=== PATIENT | male | born 1955 | race Caucasian/White ===

== ENCOUNTER 2018-02-09 13:20 | Observation (INO) | payer OTHER ==
[2018-02-09] MEDS ORDERED: SODIUM CHLORIDE 0.9% 1,000 ML IV STA (13:58)
[2018-02-09] MEDS ORDERED: HYDROmorphone 1 MG/ML 1 ML SYRINGE IVP STA (14:24)
[2018-02-09] MEDS ORDERED: ONDANSETRON 4 MG/2 ML VIAL IVP STA (14:24)
[2018-02-09] MEDS ORDERED: LORazepam 2 MG/ML INJ IV STA (14:24)
--- NOTE | 2018-02-09 14:24 | ED ---
Abdominal Pain HPI - General Chief Complaint: Abdominal Pain Stated Complaint: vomiting, fever Time Seen by Provider: 02/09/18 13:44 Source: patient, RN notes reviewed, old records reviewed Mode of arrival: ambulatory Limitations: no limitations - History of Present Illness Initial Comments: This is a 62-year-old male the ER for evaluation he presents today for evaluation regards to nausea vomiting diarrhea, patient has multiple complex medical issues, hepatitis C and cirrhosis, opiate addiction on methadone, patient has had a week a week to 2 weeks of persistent nausea vomiting and diarrhea abdominal pain weakness dehydration, and able to tolerate oral intake, patient was unable to take medications for the last 2 days. Denies fevers no travel history no sick contacts and no recent antibiotic use MD Complaint: abdominal pain -: week(s) (2) Location: diffuse Radiation: none Migration to: no migration Severity: moderate Severity scale (1-10): 4 Quality: cramping, stabbing, aching Consistency: constant Improves With: medication Worsens With: eating, vomiting, movement Associated Symptoms: nausea, vomiting, diarrhea Treatments Prior to Arrival: prescription analgesics - Related Data Home Medications Medication Instructions Recorded Confirmed Methadone [Dolophine] 1 dose PO DIRECTED 08/12/13 02/09/18 Atorvastatin [Lipitor] 40 mg PO HS 02/09/18 02/09/18 Benazepril [Lotensin] 10 mg PO BID 02/09/18 02/09/18 Carvedilol [Coreg] 25 mg PO BID 02/09/18 02/09/18 Furosemide [Lasix] 20 mg PO DAILY 02/09/18 02/09/18 Levothyroxine Sodium [Synthroid] 175 mcg PO DAILY 02/09/18 02/09/18 Lisinopril [Zestril] 10 mg PO DAILY 02/09/18 02/09/18 PARoxetine [Paxil] 20 mg PO DAILY 02/09/18 02/09/18 Spironolactone [Aldactone] 25 mg PO DAILY 02/09/18 02/09/18 clonazePAM [KlonoPIN] 0.5 mg PO BID PRN 02/09/18 02/09/18 traZODone HCL 100 mg PO HS 02/09/18 02/09/18 Previous Rx's Medication Instructions Recorded Ondansetron Odt [Zofran ODT] 4 mg PO Q8HR PRN #30 tab 02/09/18 Allergies Allergy/AdvReac Type Severity Reaction Status Date / Time codeine AdvReac Itching Verified 02/09/18 14:55 oxycodone [From OxyContin] AdvReac patient Verified 02/09/18 14:55 does not want Review of Systems ROS Statement: Those systems with pertinent positive or pertinent negative responses have been documented in the HPI. ROS Other: All systems not noted in ROS Statement are negative. Past Medical History Past Medical History: Hyperlipidemia, Hypertension, Thyroid Disorder Additional Past Medical History / Comment(s): chronic back pain, hypothyroid History of Any Multi-Drug Resistant Organisms: None Reported Past Surgical History: Back Surgery, Hernia Repair, Tonsillectomy Additional Past Surgical History / Comment(s): R/L elbow sx Past Anesthesia/Blood Transfusion Reactions: No Reported Reaction Past Psychological History: No Psychological Hx Reported Smoking Status: Current some day smoker Past Alcohol Use History: None Reported Past Drug Use History: Marijuana General Exam Limitations: no limitations General appearance: alert, in no apparent distress Head exam: Present: atraumatic, normocephalic, normal inspection Eye exam: Present: normal appearance, PERRL, EOMI. Absent: scleral icterus, conjunctival injection, periorbital swelling ENT exam: Present: normal exam, mucous membranes moist Neck exam: Present: normal inspection. Absent: tenderness, meningismus, lymphadenopathy Respiratory exam: Present: normal lung sounds bilaterally. Absent: respiratory distress, wheezes, rales, rhonchi, stridor Cardiovascular Exam: Present: regular rate, normal rhythm, normal heart sounds. Absent: systolic murmur, diastolic murmur, rubs, gallop, clicks GI/Abdominal exam: Present: soft, normal bowel sounds. Absent: distended, tenderness, guarding, rebound, rigid Extremities exam: Present: normal inspection, full ROM, normal capillary refill. Absent: tenderness, pedal edema, joint swelling, calf tenderness Back exam: Present: normal inspection Neurological exam: Present: alert, oriented X3, CN II-XII intact Psychiatric exam: Present: normal affect, normal mood Skin exam: Present: warm, dry, intact, normal color. Absent: rash Course Vital Signs 02/09/18 13:24 Temperature 97.9 F Pulse Rate 84 Respiratory 22 Rate Blood Pressure 164/101 O2 Sat by Pulse 84 L Oximetry - Reevaluation(s) Reevaluation #1: 02/09/18 16:38 Medical record is reviewed Reevaluation #2: 02/09/18 16:39 Patient has no improvement despite significant amount of medications here in the emergency room Medical Decision Making - Medical Decision Making 59 female the ER with intractable nausea vomiting, despite medication here in the ER patient is unable to tolerate oral diet, patient placed on pain control antibiotics and will be admitted for IV hydration and resuscitation - Lab Data Result diagrams: 02/09/18 13:52 02/09/18 13:52 Lab Results 02/09/18 02/09/18 02/09/18 Range/Units 13:52 13:52 13:52 WBC 13.0 H (3.8-10.6) k/uL RBC 4.55 (4.30-5.90) m/uL Hgb 13.3 (13.0-17.5) gm/dL Hct 40.9 (39.0-53.0) % MCV 90.0 (80.0-100.0) fL MCH 29.2 (25.0-35.0) pg MCHC 32.4 (31.0-37.0) g/dL RDW 15.0 (11.5-15.5) % Plt Count 319 (150-450) k/uL Neutrophils % 80 % Lymphocytes % 13 % Monocytes % 5 % Eosinophils % 1 % Basophils % 0 % Neutrophils # 10.4 H (1.3-7.7) k/uL Lymphocytes # 1.7 (1.0-4.8) k/uL Monocytes # 0.6 (0-1.0) k/uL Eosinophils # 0.1 (0-0.7) k/uL Basophils # 0.0 (0-0.2) k/uL PT (9.0-12.0) sec INR (<1.2) APTT (22.0-30.0) sec Sodium 141 (137-145) mmol/L Potassium 3.7 (3.5-5.1) mmol/L Chloride 108 H (98-107) mmol/L Carbon Dioxide 21 L (22-30) mmol/L Anion Gap 12 mmol/L BUN 18 (9-20) mg/dL Creatinine 0.89 (0.66-1.25) mg/dL Est GFR (CKD-EPI)AfAm >90 (>60 ml/min/1.73 sqM) Est GFR (CKD-EPI)NonAf >90 (>60 ml/min/1.73 sqM) Glucose 155 H (74-99) mg/dL Plasma Lactic Acid Jared (0.7-2.0) mmol/L Calcium 10.9 H (8.4-10.2) mg/dL Phosphorus 1.0 L* (2.5-4.5) mg/dL Magnesium 1.8 (1.6-2.3) mg/dL Total Bilirubin 0.6 (0.2-1.3) mg/dL AST 34 (17-59) U/L ALT 35 (21-72) U/L Alkaline Phosphatase 85 (38-126) U/L Total Creatine Kinase 36 L (55-170) U/L CK-MB (CK-2) 0.6 (0.0-2.4) ng/mL CK-MB (CK-2) Rel Index 1.7 Troponin I <0.012 (0.000-0.034) ng/mL Total Protein 7.7 (6.3-8.2) g/dL Albumin 4.1 (3.5-5.0) g/dL 02/09/18 02/09/18 Range/Units 13:52 15:07 WBC (3.8-10.6) k/uL RBC (4.30-5.90) m/uL Hgb (13.0-17.5) gm/dL Hct (39.0-53.0) % MCV (80.0-100.0) fL MCH (25.0-35.0) pg MCHC (31.0-37.0) g/dL RDW (11.5-15.5) % Plt Count (150-450) k/uL Neutrophils % % Lymphocytes % % Monocytes % % Eosinophils % % Basophils % % Neutrophils # (1.3-7.7) k/uL Lymphocytes # (1.0-4.8) k/uL Monocytes # (0-1.0) k/uL Eosinophils # (0-0.7) k/uL Basophils # (0-0.2) k/uL PT 10.2 (9.0-12.0) sec INR 1.0 (<1.2) APTT 22.5 (22.0-30.0) sec Sodium (137-145) mmol/L Potassium (3.5-5.1) mmol/L Chloride (98-107) mmol/L Carbon Dioxide (22-30) mmol/L Anion Gap mmol/L BUN (9-20) mg/dL Creatinine (0.66-1.25) mg/dL Est GFR (CKD-EPI)AfAm (>60 ml/min/1.73 sqM) Est GFR (CKD-EPI)NonAf (>60 ml/min/1.73 sqM) Glucose (74-99) mg/dL Plasma Lactic Acid Jared 2.5 H* (0.7-2.0) mmol/L Calcium (8.4-10.2) mg/dL Phosphorus (2.5-4.5) mg/dL Magnesium (1.6-2.3) mg/dL Total Bilirubin (0.2-1.3) mg/dL AST (17-59) U/L ALT (21-72) U/L Alkaline Phosphatase (38-126) U/L Total Creatine Kinase (55-170) U/L CK-MB (CK-2) (0.0-2.4) ng/mL CK-MB (CK-2) Rel Index Troponin I (0.000-0.034) ng/mL Total Protein (6.3-8.2) g/dL Albumin (3.5-5.0) g/dL Disposition Clinical Impression: Abdominal pain, Nausea & vomiting Disposition: ADMITTED IP TO THIS HOSP Condition: Good Instructions: Acute Nausea and Vomiting (ED), Abdominal Pain (ED) Prescriptions: Ondansetron Odt [Zofran ODT] 4 mg PO Q8HR PRN #30 tab PRN Reason: nausea/vomiting Is patient prescribed a controlled substance at d/c from ED?: No Referrals: Giuseppe Santiago DO [Primary Care Provider] - 1-2 days
[2018-02-09 14:42] LABS: Basophils % (A) 0 %; Eosinophils # (A) 0.1 k/uL (0-0.7); Eosinophils % (A) 1 %; HCT 40.9 % (39.0-53.0); HGB 13.3 gm/dL (13.0-17.5); Lymphocytes # (A) 1.7 k/uL (1.0-4.8); Lymphocytes % (A) 13 %; MCH 29.2 pg (25.0-35.0); MCHC 32.4 g/dL (31.0-37.0); Mean Platelet Volume 6.4; Monocytes # (A) 0.6 k/uL (0-1.0); Monocytes % (A) 5 %; Neutrophils # (A) 10.4 k/uL (1.3-7.7); Neutrophils % (A) 80 %; Platelet Count 319 k/uL (150-450); RBC 4.55 m/uL (4.30-5.90)
[2018-02-09 14:49] LABS: ALT 35 U/L (21-72); AST 34 U/L (17-59); Albumin 4.1 g/dL (3.5-5.0); Alkaline Phosphatase 85 U/L (38-126); Anion Gap 12 mmol/L; Blood Urea Nitrogen 18 mg/dL (9-20); Calcium 10.9 mg/dL (8.4-10.2); Carbon Dioxide 21 mmol/L (22-30); Chloride 108 mmol/L (98-107); Glucose 155 mg/dL (74-99); Magnesium 1.8 mg/dL (1.6-2.3); Potassium 3.7 mmol/L (3.5-5.1); Sodium 141 mmol/L (137-145); Total Bilirubin 0.6 mg/dL (0.2-1.3); Total Protein 7.7 g/dL (6.3-8.2)
[2018-02-09 14:53] LABS: Partial Thromboplastin Time 22.5 sec (22.0-30.0); Prothrombin Time 10.2 sec (9.0-12.0)
[2018-02-09 14:58] LABS: Creatine Kinase 36 U/L (55-170)
[2018-02-09 15:12] LABS: Creatine Kinase MB 0.6 ng/mL (0.0-2.4); Troponin I <0.012 ng/mL (0.000-0.034)
[2018-02-09] MEDS ORDERED: LORazepam 2 MG/ML INJ IV PRN (16:33)
[2018-02-09] MEDS ORDERED: SODIUM CHLORIDE 0.9% 1,000 ML IV ONE (16:33)
[2018-02-09] MEDS ORDERED: ONDANSETRON 4 MG/2 ML VIAL IVP PRN (16:33)
[2018-02-09] MEDS ORDERED: LABETALOL 5 MG/ML VIAL MDV IVP STA (17:19)
[2018-02-09] MEDS ORDERED: hydrALAZINE HCL 20 MG/ML 1 ML VIAL IVP PRN (17:19)
[2018-02-09] MEDS ORDERED: clonazePAM 0.5 MG TAB PO PRN (20:07)
[2018-02-09] MEDS ORDERED: ALPRAZolam 0.25 MG TAB PO PRN (20:13)
[2018-02-09] MEDS ORDERED: TEMAZEPAM 15 MG CAP PO PRN (20:13)
[2018-02-09] MEDS ORDERED: METHADONE 10 MG TAB PO SCH (20:15)
[2018-02-09] MEDS: HYDROmorphone 1 MG/ML 1 ML SYRINGE IVP PRN (20:15)
--- NOTE | 2018-02-09 20:54 | XR ---
EXAMINATION TYPE: XR chest 1V portable DATE OF EXAM: 02/09/2018 CLINICAL HISTORY: CHF and shortness of breath. TECHNIQUE: Single AP portable frontal upright view of the chest is obtained. COMPARISON: Chest x-ray August 21, 2012. FINDINGS: There is some chronic parenchymal change without suspicious focal air space opacity, pleur al effusion, or pneumothorax seen. The cardiac silhouette size is within normal limits with ectatic thoracic aorta. The osseous structures are demineralized. IMPRESSION: No suspicious acute cardiopulmonary process.
[2018-02-09] MEDS ORDERED: CARVEDILOL 12.5 MG TAB PO SCH (21:00)
[2018-02-09] MEDS ORDERED: NON-FORMULARY DRUG (Benazepril 10 MG) PO SCH (21:00)
--- NOTE | 2018-02-09 21:31 | HP ---
HISTORY AND PHYSICAL DATE OF SERVICE: 02/09/2018 CHIEF COMPLAINT: Abdominal pain and nausea and vomiting. HISTORY OF PRESENT ILLNESS: This 62-year-old gentleman with a past medical history of multiple medical problems including hypertension, hyperlipidemia, hypothyroidism, history of chronic back pain, hypothyroidism, being followed by Dr. Tammy Santiago in the outpatient setting , was complaining of abdominal pain. The patient also had nausea, vomiting, diarrhea going on for the last 15 days. Patient unable to keep anything down. Patient got better the last couple days apparently but now the symptoms are recurring and the patient came to [facility] and admitted for further evaluation and treatment. There is no history of fever, rigors. No history of headache, loss of consciousness, seizures. PAST MEDICAL HISTORY: History of hypertension, hyperlipidemia, hypothyroidism, history of chronic back pain and back surgery. MEDICATIONS: Prior to admission include home medications are: 1. Trazodone 100 mg p.o. q.h.s. 2. Klonopin 0.5 mg b.i.d. p.r.n. 3. Aldactone 25 mg p.o. daily. 4. Paxil 20 mg p.o. daily. 6. Zestril 10 mg p.o. daily. 7. Synthroid 175 mcg. 8. Lasix 20 mg. 9. Coreg b.i.d. p.r.n. 10.Lotensin 10 mg p.o. b.i.d. 11.Lipitor 40 mg q.h.s. 12.Zofran 4 mg q.8h p.r.n. ALLERGIES: CODEINE, OXYCODONE. FAMILY HISTORY: No history of heart disease or strokes in the family. SOCIAL HISTORY: History of smoking and history of THC. No history of alcohol intake. REVIEW OF SYSTEMS: ENT: Diminished hearing and diminished vision. CARDIOVASCULAR: No angina or palpitations. RESPIRATORY: As mentioned earlier. GI: No nausea or vomiting. no dysuria. Central nervous system: No numbness or weakness. ALLERGY/IMMUNOLOGY: No asthma or hayfever. Musculoskeletal: As mentioned earlier. Hematology/Oncology: No history of anemia. ENDOCRINE: No history of diabetes or hypothyroidism. Constitutional: As mentioned earlier. Dermatology: Negative. Rheumatology: Negative. Psychiatry: As mentioned earlier. PHYSICAL EXAMINATION: GENERAL: The patient is alert and oriented times three. VITAL SIGNS: Pulse 71, blood pressure 150/100, respiration 18, temperature 97.8 , pulse ox 97% on room air. HEENT conjunctivae normal. Oral mucosa moist. Neck is no jugular venous distention. No carotid bruit. No lymph node enlargement. Cardiovascular systems: S1, S2 muffled. Respirations: Breath sounds diminished in the bases. A few scattered rhonchi and crackles. ABDOMEN: Soft, mild diffuse discomfort in the epigastrium. LEGS: No edema. No swelling. NERVOUS SYSTEM: Higher functions as mentioned earlier. Moves all 4 limbs. No focal motor or sensory deficits. Lymphatics: No lymph nodes palpable in the neck, axillae or groin. Skin: No ulcer, rash or bleeding. Joints: No active deforming arthropathy. LABS: WBC 13 and sodium 141, potassium 3.7, lactic acid 2.4, phosphorus is 1, calcium is 10.9. ASSESSMENT: 1. Nausea, vomiting, diarrhea, possible acute gastritis. 2. Dehydration. 3. Increased lactic acid, possibly secondary to dehydration. 4. Increased WBC. 5. Hypertension. 6. Hyperlipidemia. 7. Hypothyroidism. 8. Chronic low back pain. 9. History of degenerative joint disease. 10.History of nicotine dependence. 11.History of THC. RECOMMENDATIONS AND DISCUSSION: In this 62-year-old gentleman who presented with multiple complex medical issues. We will monitor the patient closely, continue the current medications, management and symptomatic treatment. Otherwise, at this time, we will monitor the patient closely. Resume the current medications. Otherwise, p.r.n. Ativan. I would recommend n.p.o. except medications, if the patient is able to tolerate, start clear liquids and advance to bland diet. Otherwise the prognosis guarded because of multiple complex medical issues. Further recommendations to follow. Discussed with the patient. A copy of dictation is being forwarded to Dr. Tammy Santiago, who is the primary physician. MMODL / IJN: [id number] / [facility]OSPITALMonae
[2018-02-09] MEDS: SODIUM CHLORIDE 0.9% 1,000 ML with POTASSIUM CHLORIDE 20 MEQ, MVI, ADULT NO.4 WITH VIT ... IV SCH ×5 (23:06)
[2018-02-09] MEDS: PANTOPRAZOLE 40 MG/10 ML VIAL IVP SCH (23:07)
[2018-02-09] MEDS: ATORVASTATIN 40 MG TAB PO SCH (23:07)
[2018-02-09] MEDS: traZODone HCL 100 MG TAB PO SCH (23:07)
[2018-02-09] MEDS: PARoxetine 20 MG TAB PO SCH (23:12)
[2018-02-10 05:41] LABS: Anion Gap 4 mmol/L; Blood Urea Nitrogen 14 mg/dL (9-20); Calcium 9.6 mg/dL (8.4-10.2); Carbon Dioxide 25 mmol/L (22-30); Chloride 111 mmol/L (98-107); Glucose 95 mg/dL (74-99); Potassium 4.1 mmol/L (3.5-5.1); Sodium 140 mmol/L (137-145)
[2018-02-10 05:42] LABS: Basophils % (A) 0 %; Eosinophils # (A) 0.1 k/uL (0-0.7); Eosinophils % (A) 2 %; HCT 35.1 % (39.0-53.0); HGB 11.3 gm/dL (13.0-17.5); Lymphocytes # (A) 2.4 k/uL (1.0-4.8); Lymphocytes % (A) 25 %; MCH 29.1 pg (25.0-35.0); MCHC 32.2 g/dL (31.0-37.0); MCV 90.4 fL (80.0-100.0); Mean Platelet Volume 6.1; Monocytes # (A) 0.5 k/uL (0-1.0); Monocytes % (A) 5 %; Neutrophils # (A) 6.4 k/uL (1.3-7.7); Neutrophils % (A) 67 %; Platelet Count 237 k/uL (150-450); RBC 3.88 m/uL (4.30-5.90); RDW 15.3 % (11.5-15.5); WBC 9.5 k/uL (3.8-10.6)
[2018-02-10] MEDS: LEVOTHYROXINE 75 MCG TAB PO SCH (06:05)
[2018-02-10] MEDS: LEVOTHYROXINE 100 MCG TAB PO SCH (06:05)
[2018-02-10] MEDS: METHADONE 5 MG TAB PO SCH ×4 (06:06→17:57)
[2018-02-10] MEDS: HYDROmorphone 1 MG/ML 1 ML SYRINGE IVP PRN (07:52)
[2018-02-10] MEDS ORDERED: SPIRONOLACTONE 25 MG TAB PO SCH (09:00)
[2018-02-10] MEDS ORDERED: PARoxetine 20 MG TAB PO SCH (09:00)
[2018-02-10] MEDS ORDERED: PANTOPRAZOLE 40 MG/10 ML VIAL IVP SCH (09:00)
[2018-02-10] MEDS: PANTOPRAZOLE 40 MG/10 ML VIAL IVP SCH ×2 (09:08→21:31)
[2018-02-10] MEDS: ENOXAPARIN 40 MG/0.4 ML SYRINGE SQ SCH (09:09)
[2018-02-10] MEDS: LISINOPRIL 10 MG TAB PO SCH (09:09)
[2018-02-10] MEDS ORDERED: BUTALB/APAP/CAFF 50-325-40MG TAB PO STA (09:38)
--- NOTE | 2018-02-10 17:02 | PN ---
PROGRESS NOTE DATE OF SERVICE: 02/10/2018 This 62-year-old gentleman who was admitted with nausea, vomiting, diarrhea with possible acute gastritis is being closely monitored. The patient is n.p.o. currently. No chest pain or palpitations. No fever. A chest x-ray done yesterday showed no suspicious lesions. PHYSICAL EXAMINATION: On exam, alert and oriented x3. Pulse is 69, blood pressure 130/69, respirations 16, temperature 97.9, pulse ox 97% on room air. HEENT: Conjunctivae normal. Oral mucosa moist. Neck is no jugular venous distention. No carotid bruit. No lymph node enlargement. CARDIOVASCULAR: S1, S2 muffled. RESPIRATORY: Breath sounds diminished at the bases. No rhonchi, no crackles. Abdomen is soft, nontender. No mass palpable. LEGS: No edema, no swelling. NERVOUS SYSTEM: No focal deficits. LABS: WBC 9.5, hemoglobin 11.3. Sodium 140, potassium 4.1. ASSESSMENT: 1. Nausea, vomiting, diarrhea, possible acute gastritis. 2. Dehydration. 3. Increased lactic acidosis, possibly secondary to dehydration. 4. Increased WBC. 5. Hypertension. 6. Hyperlipidemia. 7. Hypothyroidism. 8. Chronic low back pain. 9. History of degenerative joint disease. 10.History of nicotine dependence. 11.History of THC. RECOMMENDATIONS AND DISCUSSION: Recommend to continue current medications. Continue with monitoring and symptomatic treatment. Otherwise at this time I would recommend to continue with IV fluids. Advance diet. The prognosis is guarded. Further recommendations to follow. Please note patient is unable to keep anything down for 15 days and continue to monitor. Further recommendations to follow. MMODL / IJN: [id number] /
[2018-02-10 17:43] LABS: Appearance,Urine Clear (Clear); Bilirubin,Urine Negative (Negative); Blood,Urine Negative (Negative); Color,Urine Light Yellow; Glucose,Urine (UA) Negative (Negative); Ketones,Urine Negative (Negative); Leukocyte Esterase,Urine Negative (Negative); Nitrite,Urine Negative (Negative); PH, Urine 5.5 (5.0-8.0); Protein,Urine Negative (Negative); Specific Gravity,Urine 1.008 (1.001-1.035); Urobilinogen,Urine <2.0 mg/dL (<2.0)
[2018-02-10] MEDS: SODIUM CHLORIDE 0.9% 1,000 ML with POTASSIUM CHLORIDE 20 MEQ, MVI, ADULT NO.4 WITH VIT ... IV SCH ×5 (17:57)
[2018-02-10 17:59] LABS: Amphetamine Screen,Urine Not Detected (NotDetected); Barbiturate Screen,Urine Detected (NotDetected); Benzodiazepines Screen,Urine Detected (NotDetected); Cocaine Screen,Urine Not Detected (NotDetected); Methadone Screen, Urine Detected (NotDetected); Opiate Screen,Urine Detected (NotDetected); Oxycodone Screen, Urine Not Detected (NotDetected); Phencyclidine Screen,Urine Not Detected (NotDetected); Tricyclic Antidepressant,Urine Not Detected (NotDetected); Urn Cannabinoid Scrn Detected (NotDetected)
[2018-02-10] MEDS: BUTALB/APAP/CAFF 50-325-40MG TAB PO PRN (18:01)
[2018-02-10] MEDS: ATORVASTATIN 40 MG TAB PO SCH (21:31)
[2018-02-10] MEDS: traZODone HCL 100 MG TAB PO SCH (21:32)
[2018-02-10] MEDS: PARoxetine 20 MG TAB PO SCH (21:32)
[2018-02-11] MEDS: METHADONE 5 MG TAB PO SCH ×3 (00:06→12:32)
[2018-02-11] MEDS: BUTALB/APAP/CAFF 50-325-40MG TAB PO PRN ×2 (00:07→08:33)
[2018-02-11] MEDS: LEVOTHYROXINE 75 MCG TAB PO SCH (06:06)
[2018-02-11] MEDS: LEVOTHYROXINE 100 MCG TAB PO SCH (06:06)
[2018-02-11] MEDS: SODIUM CHLORIDE 0.9% 1,000 ML with POTASSIUM CHLORIDE 20 MEQ, MVI, ADULT NO.4 WITH VIT ... IV SCH ×5 (06:08)
[2018-02-11 07:11] VITALS: BP 143/81; PULSE 76; RESP 18; TEMP 98.2
[2018-02-11] MEDS: ENOXAPARIN 40 MG/0.4 ML SYRINGE SQ SCH (08:30)
[2018-02-11] MEDS: LISINOPRIL 10 MG TAB PO SCH (08:30)
[2018-02-11] MEDS: PANTOPRAZOLE 40 MG/10 ML VIAL IVP SCH (08:30)
--- NOTE | 2018-02-11 10:35 | P.GSCN ---
History of Present Illness Consult date: 02/11/18 Reason for Consult: Chronic nausea abdominal pain History of present illness: This is a 62-year-old male with multiple medical problems. Patient was admitted through the emergency room with complaints of some abdominal pain nausea and some intermittent diarrhea. Patient states he feels better today. He is requesting be discharged because he has a appointment with his pain clinic doctor and he is afraid of having his narcotics reduced. Patient is requesting more to eat. Apparently has had some clear liquids. Past Medical History Past Medical History: Hyperlipidemia, Hypertension, Thyroid Disorder Additional Past Medical History / Comment(s): chronic back pain, hypothyroid History of Any Multi-Drug Resistant Organisms: None Reported Past Surgical History: Back Surgery, Hernia Repair, Tonsillectomy Additional Past Surgical History / Comment(s): R/L elbow sx Past Anesthesia/Blood Transfusion Reactions: No Reported Reaction Past Psychological History: No Psychological Hx Reported Smoking Status: Current some day smoker Past Alcohol Use History: None Reported Past Drug Use History: Marijuana - Past Family History Mother History Unknown: Yes Medications and Allergies Home Medications Medication Instructions Recorded Confirmed Type Methadone [Dolophine] 1 dose PO DIRECTED 08/12/13 02/09/18 History Atorvastatin [Lipitor] 40 mg PO HS 02/09/18 02/09/18 History Levothyroxine Sodium [Synthroid] 175 mcg PO DAILY 02/09/18 02/09/18 History Lisinopril [Zestril] 10 mg PO DAILY 02/09/18 02/09/18 History PARoxetine [Paxil] 20 mg PO HS 02/09/18 02/09/18 History clonazePAM [KlonoPIN] 0.5 mg PO BID PRN 02/09/18 02/09/18 History traZODone HCL 100 mg PO HS 02/09/18 02/09/18 History Allergies Allergy/AdvReac Type Severity Reaction Status Date / Time codeine AdvReac Itching Verified 02/09/18 14:55 oxycodone [From OxyContin] AdvReac patient Verified 02/09/18 14:55 does not want Surgical - Exam Vital Signs Temp Pulse Resp BP Pulse Ox 97.9 F 84 22 164/101 84 L 02/09/18 13:24 02/09/18 13:24 02/09/18 13:24 02/09/18 13:24 02/09/18 13:24 - General well developed, no distress - Eyes PERRL - ENT normal pinna - Neck no masses - Respiratory normal expansion - Cardiovascular Rhythm: regular - Abdomen Abdomen: soft Hernia: none Results - Labs 02/10/18 05:20 02/10/18 05:20 Abnormal Lab Results - Last 24 Hours (Table) 02/09/18 Range/Units 17:00 Urine Opiates Screen Detected H (NotDetected) Urine Methadone Screen Detected H (NotDetected) Ur Barbiturates Screen Detected H (NotDetected) U Benzodiazepines Scrn Detected H (NotDetected) U Marijuana (THC) Screen Detected H (NotDetected) Microbiology - Last 24 Hours (Table) 02/09/18 17:00 Urine Culture - Preliminary Urine,Voided Assessment and Plan Assessment: Chronic nausea and diarrhea. Patient's multiple medical problems limb unsure of the etiology of his nausea. He seems to be doing better today. I would recommend increasing his diet.
--- NOTE | 2018-02-11 14:21 | DS ---
DISCHARGE SUMMARY DATE OF SERVICE: 02/11/2018 FINAL DIAGNOSES: 1. Nausea, vomiting, diarrhea, possible acute gastritis. 2. Dehydration. 3. History of increased lactic acidosis possibly secondary to dehydration. 4. Increased WBC. 5. Hypertension. 6. Hyperlipidemia. 7. Hypothyroidism. 8. Chronic back pain syndrome and low back pain. 9. History of degenerative joint disease. 10.History of nicotine dependence. 11.History of THC. DISCHARGE DISPOSITION: The patient is being discharged in stable condition with guarded prognosis. HISTORY OF PRESENT ILLNESS: This 62-year-old gentleman with a past medical history of multiple medical problems having nausea, vomiting, diarrhea. The patient was treated symptomatically, improved significantly. Patient was given IV fluids. The patient is keen on going home at this time. The patient had the Pain Clinic appointment tomorrow. On exam vitals stable. Cardiovascular: S1, S2. Abdomen soft. Nervous system: No focal deficits. The patient is not symptomatically better. The patient might any need outpatient EGD later to be evaluated by Dr. Santiago for that decision. Discussed with the patient. DISCHARGE ADVICE AND MEDICATION: 1. Diet is soft bland as tolerated. 2. Follow up with Dr. Tammy Santiago in 1-2 days. 3. Lipitor 40 mg q.h.s. 4. Klonopin 0.5 mg b.i.d. p.r.n. 5. Synthroid 175 mcg p.o. daily. 6. Zestril 10 mg p.o. daily. 7. Methadone 10 mg as before. 8. Paxil 20 mg q.h.s. 9. Trazodone 100 mg q.h.s. 10.Protonix 40 mg p.o. daily. Once again, the patient is being discharged in stable condition with guarded prognosis. MMODL / IJN: [id number] /
== END 2018-02-11 13:41 | disposition home or self-care (01) ==
LOC: EC 13:20 → 4MS4W 18:00
PROVIDERS: ADMIT Hospitalist; ATTEND Hospitalist
DX: R11.2 Nausea with vomiting, unspecified (principal); R19.7 Diarrhea, unspecified; R10.9 Unspecified abdominal pain; E86.0 Dehydration; G89.4 Chronic pain syndrome; E03.9 Hypothyroidism, unspecified; E78.5 Hyperlipidemia, unspecified; I10 Essential (primary) hypertension; B19.20 Unspecified viral hepatitis C without hepatic coma; M54.5 Low back pain; E87.2 Acidosis; K74.60 Unspecified cirrhosis of liver; F17.200 Nicotine dependence, unspecified, uncomplicated; F11.20 Opioid dependence, uncomplicated; Z79.890 Hormone replacement therapy; Z79.899 Other long term (current) drug therapy; Z88.5 Allergy status to narcotic agent
CPT/HCPCS: 96376 ×3; 96361 ×3; 96375 ×2; 96374; 99285; 36415; 94760; 93005; 80053; 80048; 82550; 82553; 83605 ×2; 83735; 84100; 84484; 85025 ×2; 85610; 85730; 81003; 80306; 87086; 71045; G0378 ×3; J2060; J3411 ×3; J2405; J3480 ×3; J1170 ×2; S0109 ×2; C9113 ×3

== ENCOUNTER → 2018-06-30 | Outpatient (CLI) | payer OTHER ==
--- NOTE | 2018-06-30 12:50 | MR ---
EXAMINATION TYPE: MR knee LT wo con DATE OF EXAM: 06/30/2018 COMPARISON: Outside x-ray 06/18/2018 HISTORY: Lt knee pain TECHNIQUE: Multiplanar, multisequence imaging of the left knee is performed without IV contrast. FINDINGS: Exam limited by motion artifact. MEDIAL MENISCUS: Grade 3 abnormal signal involving the posterior horn and body of the medial meniscus compatible with tear LATERAL MENISCUS: There is signal seen in the medial margin of the posterior horn of the lateral meni scus suggestive of a lateral meniscal tear. CRUCIATE LIGAMENTS: The anterior and posterior cruciate ligaments are intact and unremarkable. COLLATERAL LIGAMENTS: The medial collateral ligament and lateral collateral ligament complex are inta ct and unremarkable. EXTENSOR MECHANISM: Visualized quadriceps and patellar tendons are intact. EFFUSION: No significant suprapatellar joint effusion. POPLITEAL CYST: No popliteal/brady cyst. TRICOMPARTMENT SPACES: There is deformity of the medial tibial tubercle which could be congenital but there is loss of joint space and articular cartilage compatible osteoarthritis. Grade III chondromal acia patellar cartilage also noted. BONE MARROW SIGNAL: There is a well-circumscribed 15 mm lesion within the distal metadiaphysis of the femur. No corresponding x-ray abnormality. Recommend bone scan. Localized area of reduced signal along the articular surface of the lateral femoral condyle likely re active. Small area of osteochondritis not excluded. IMPRESSION: 1. Chronic appearing deformity of the medial tibial plateau can occasionally be seen in congenital ab normality such as [place]'s disease correlate clinically. Findings result in severe arthritic changes. There also is a tear involving the posterior horn and body of the medial meniscus. 2. There is an intraosseous lesion of the distal femur with no corresponding x-ray abnormality. Recom mend bone scan. 3. Posterior horn lateral meniscal tear.
== END | disposition home or self-care (01) ==
LOC: RADMRIMAIN 12:00
PROVIDERS: ATTEND Orthopaedic Surgery
DX: S83.282A Other tear of lateral meniscus, current injury, left knee, initial encounter (principal); M89.9 Disorder of bone, unspecified

== ENCOUNTER → 2018-08-21 | Outpatient (CLI) | payer OTHER ==
--- NOTE | 2018-08-21 13:17 | MR ---
EXAMINATION TYPE: MR lumbar spine wo con DATE OF EXAM: 08/21/2018 COMPARISON: CT lumbar spine 05/17/2011 HISTORY: Low back pain TECHNIQUE: Multiplanar, multisequence images of the lumbar spine were acquired. L1-L2: Posterior broad-based disc bulge causes mild anterior mass effect on the thecal sac. No signif icant central stenosis or foraminal encroachment. L2-L3: Posterior extension of endplate disc complex causes mild anterior mass effect on the thecal sa c. There is facet arthropathy causing some posterior lateral mass effect on the thecal sac. Circumfer ential extension endplate disc complex encroaches somewhat on the foramina greater on the right. No s ignificant central stenosis. L3-L4: Posterior broad-based disc bulge, posterior extension endplate disc complex causes anterior ma ss effect on the thecal sac. Facet arthropathy with vertically ligamentum flavum contributes to cause a trefoil appearance of the thecal sac. Circumferential extension endplate disc complex encroaches o n the neural foramina. L4-L5: Posterior broad-based disc bulge causes anterior mass effect on the thecal sac but no signific ant spinal stenosis. Listhesis contributes to cause bilateral foraminal encroachment, there is some f acet arthropathy change L5-S1: Listhesis contributes to cause bilateral foraminal encroachment. Laminectomies are present. No spinal stenosis. No disc herniation. The patient is status post posterior lumbosacral fusion at L5-S1, susceptibility artifact is present from the hardware No paraspinal masses are identified. Conus medullaris has a normal appearance. [place] s of disc height and signal is present at intervertebral levels, there is multilevel spondylosis with endplate discogenic marrow signal change, multilevel vacuum phenomenon at the intervertebral disc sp aces consistent with disc desiccation, degenerative disc disease. Anterolisthesis grade 1 at L5-S1 is again seen. Minimal anterolisthesis grade 1 at L4-5 is an interval finding. Abdominal aorta measures approximately 3 cm in the super renal location. Cortical cyst associated with the right kidney measu res approximately 14 mm in size. Multilevel Schmorl's node formation the lower thoracic spine. Conus terminates at L2. IMPRESSION: Postop changes, degenerative disc disease, multilevel foraminal encroachment. Spinal listhesis L4-5 a nd L5-S1. Aortic aneurysm, follow-up recommended. Facet arthropathy.
== END | disposition home or self-care (01) ==
LOC: RADMRIMAIN 11:59
PROVIDERS: ATTEND Orthopaedic Surgery Orthopaedic Surgery of the Spine
DX: M48.061 Spinal stenosis, lumbar region without neurogenic claudication (principal); M48.07 Spinal stenosis, lumbosacral region; M43.16 Spondylolisthesis, lumbar region; M43.17 Spondylolisthesis, lumbosacral region; M51.36 Other intervertebral disc degeneration, lumbar region; M46.96 Unspecified inflammatory spondylopathy, lumbar region; Z98.1 Arthrodesis status
CPT/HCPCS: 72148

== ENCOUNTER 2019-01-20 21:47 | Emergency (ER) | payer OTHER ==
[2019-01-20] MEDS ORDERED: SODIUM CHLORIDE 0.9% 1,000 ML IV STA (22:09)
[2019-01-20] MEDS ORDERED: HYDROmorphone 1 MG/ML 1 ML SYRINGE IVP STA (22:09)
--- NOTE | 2019-01-20 22:13 | ED ---
Back Pain HPI - General Chief Complaint: Back Pain/Injury Stated Complaint: Post op back surgery complications Time Seen by Provider: 01/20/19 21:57 Source: patient, RN notes reviewed, old records reviewed Limitations: no limitations - History of Present Illness Initial Comments: This is a 63-year-old male the ER for evaluation presented for postop pain postop pain and swelling. He is admitted to increasing pain at base of popped up about an hour ago he also swelling at the top of his incision site. Patient had surgery at [facility]. Surgery was for lumbar fusion secondary to disc disease. He has no neurological deficits no loss of bowel or bladder and currently denying fevers chills or sweating. MD Complaint: back pain, other (Postoperative pain) -: hour(s) Similar Symptoms Previously: No Place: home Radiation: none Severity: moderate Severity scale (1-10): 7 Consistency: constant Improves With: none Worsens With: none Context: other (No injury but does have history of surgery) Associated Symptoms: denies other symptoms - Related Data Home Medications Medication Instructions Recorded Confirmed Methadone [Dolophine] 40 mg PO DAILY 08/12/13 01/20/19 Atorvastatin [Lipitor] 40 mg PO HS 02/09/18 01/20/19 Levothyroxine Sodium [Synthroid] 175 mcg PO DAILY 02/09/18 01/20/19 Aspirin EC [Ecotrin Low Dose] 81 mg PO DAILY 01/20/19 01/20/19 Lisinopril [Zestril] 20 mg PO DAILY 01/20/19 01/20/19 Methocarbamol [Robaxin-750] 750 mg PO TID 01/20/19 01/20/19 PARoxetine HCL [Paxil] 30 mg PO HS 01/20/19 01/20/19 Potassium 99 mg PO DAILY 01/20/19 01/20/19 oxyCODONE-APAP 10-325MG [Percocet 1 tab PO TID PRN 01/20/19 01/20/19 10-325 mg] Allergies Allergy/AdvReac Type Severity Reaction Status Date / Time codeine AdvReac Itching Verified 01/20/19 22:35 oxycodone [From OxyContin] AdvReac patient Verified 01/20/19 22:35 does not want Review of Systems ROS Statement: Those systems with pertinent positive or pertinent negative responses have been documented in the HPI. ROS Other: All systems not noted in ROS Statement are negative. Past Medical History Past Medical History: Hyperlipidemia, Hypertension, Thyroid Disorder Additional Past Medical History / Comment(s): chronic back pain, hypothyroid History of Any Multi-Drug Resistant Organisms: None Reported Past Surgical History: Back Surgery, Hernia Repair, Tonsillectomy Additional Past Surgical History / Comment(s): R/L elbow sx Past Anesthesia/Blood Transfusion Reactions: No Reported Reaction Past Psychological History: No Psychological Hx Reported Smoking Status: Current some day smoker Past Alcohol Use History: None Reported Past Drug Use History: Marijuana - Past Family History Mother History Unknown: Yes General Exam Limitations: no limitations General appearance: alert, in no apparent distress Head exam: Present: atraumatic, normocephalic, normal inspection Eye exam: Present: normal appearance, PERRL, EOMI. Absent: scleral icterus, conjunctival injection, periorbital swelling ENT exam: Present: normal exam, mucous membranes moist Neck exam: Present: normal inspection. Absent: tenderness, meningismus, lymphadenopathy Respiratory exam: Present: normal lung sounds bilaterally. Absent: respiratory distress, wheezes, rales, rhonchi, stridor Cardiovascular Exam: Present: normal rhythm, tachycardia, normal heart sounds. Absent: systolic murmur, diastolic murmur, rubs, gallop, clicks GI/Abdominal exam: Present: soft, normal bowel sounds. Absent: distended, tenderness, guarding, rebound, rigid Extremities exam: Present: normal inspection, full ROM, normal capillary refill. Absent: tenderness, pedal edema, joint swelling, calf tenderness Back exam: Present: full ROM, other (Patient has clean dry and intact incision site no dehiscence cephalad to the incision site is an area of tenderness and edema) Neurological exam: Present: alert, oriented X3, CN II-XII intact Psychiatric exam: Present: normal affect, normal mood Skin exam: Present: warm, dry, intact, normal color. Absent: rash Course Vital Signs 01/20/19 21:48 Temperature 99.2 F Pulse Rate 101 H Respiratory 18 Rate Blood Pressure 137/90 O2 Sat by Pulse 98 Oximetry - Reevaluation(s) Reevaluation #1: 01/21/19 00:00 Medical records reviewed Reevaluation #2: 01/21/19 00:00 She'll return to ER symptoms of fever worsen or back pain significantly becomes worse or any neurologcal changes Medical Decision Making - Medical Decision Making 53 male the ER for evaluation of postop swelling. Incisions clean dry and intact no erythema warmth to the area no fever patient's CT of his lumbar spine is without spinal abscess he does have some postsurgical changes and healing no hortencia. No discrete abscess no erythema on exam no warmth. No signs of infection patient can be discharged home to continue to monitor for signs of fever or swelling increasing or redness - Lab Data Result diagrams: 01/20/19 22:27 01/20/19 22:27 Lab Results 01/20/19 01/20/19 01/20/19 Range/Units 22:27 22:27 22:27 WBC 13.9 H (3.8-10.6) k/uL RBC 4.49 (4.30-5.90) m/uL Hgb 12.4 L (13.0-17.5) gm/dL Hct 39.3 (39.0-53.0) % MCV 87.5 (80.0-100.0) fL MCH 27.6 (25.0-35.0) pg MCHC 31.5 (31.0-37.0) g/dL RDW 15.9 H (11.5-15.5) % Plt Count 546 H (150-450) k/uL Neutrophils % 72 % Lymphocytes % 18 % Monocytes % 6 % Eosinophils % 2 % Basophils % 1 % Neutrophils # 10.0 H (1.3-7.7) k/uL Lymphocytes # 2.5 (1.0-4.8) k/uL Monocytes # 0.8 (0-1.0) k/uL Eosinophils # 0.3 (0-0.7) k/uL Basophils # 0.1 (0-0.2) k/uL Hypochromasia Slight PT (9.0-12.0) sec INR (<1.2) APTT (22.0-30.0) sec Sodium 139 (137-145) mmol/L Potassium 4.6 (3.5-5.1) mmol/L Chloride 108 H (98-107) mmol/L Carbon Dioxide 24 (22-30) mmol/L Anion Gap 7 mmol/L BUN 27 H (9-20) mg/dL Creatinine 0.90 (0.66-1.25) mg/dL Est GFR (CKD-EPI)AfAm >90 (>60 ml/min/1.73 sqM) Est GFR (CKD-EPI)NonAf 90 (>60 ml/min/1.73 sqM) Glucose 109 H (74-99) mg/dL Plasma Lactic Acid Jared 1.4 (0.7-2.0) mmol/L Calcium 10.4 H (8.4-10.2) mg/dL Phosphorus 3.5 (2.5-4.5) mg/dL Magnesium 1.7 (1.6-2.3) mg/dL Total Bilirubin 0.2 (0.2-1.3) mg/dL AST 19 (17-59) U/L ALT 15 L (21-72) U/L Alkaline Phosphatase 171 H (38-126) U/L Creatine Kinase <20 L (55-170) U/L Troponin I (0.000-0.034) ng/mL Total Protein 7.5 (6.3-8.2) g/dL Albumin 3.8 (3.5-5.0) g/dL 01/20/19 01/20/19 Range/Units 22:27 22:27 WBC (3.8-10.6) k/uL RBC (4.30-5.90) m/uL Hgb (13.0-17.5) gm/dL Hct (39.0-53.0) % MCV (80.0-100.0) fL MCH (25.0-35.0) pg MCHC (31.0-37.0) g/dL RDW (11.5-15.5) % Plt Count (150-450) k/uL Neutrophils % % Lymphocytes % % Monocytes % % Eosinophils % % Basophils % % Neutrophils # (1.3-7.7) k/uL Lymphocytes # (1.0-4.8) k/uL Monocytes # (0-1.0) k/uL Eosinophils # (0-0.7) k/uL Basophils # (0-0.2) k/uL Hypochromasia PT 9.6 (9.0-12.0) sec INR 0.9 (<1.2) APTT 24.0 (22.0-30.0) sec Sodium (137-145) mmol/L Potassium (3.5-5.1) mmol/L Chloride (98-107) mmol/L Carbon Dioxide (22-30) mmol/L Anion Gap mmol/L BUN (9-20) mg/dL Creatinine (0.66-1.25) mg/dL Est GFR (CKD-EPI)AfAm (>60 ml/min/1.73 sqM) Est GFR (CKD-EPI)NonAf (>60 ml/min/1.73 sqM) Glucose (74-99) mg/dL Plasma Lactic Acid Jared (0.7-2.0) mmol/L Calcium (8.4-10.2) mg/dL Phosphorus (2.5-4.5) mg/dL Magnesium (1.6-2.3) mg/dL Total Bilirubin (0.2-1.3) mg/dL AST (17-59) U/L ALT (21-72) U/L Alkaline Phosphatase (38-126) U/L Creatine Kinase (55-170) U/L Troponin I <0.012 (0.000-0.034) ng/mL Total Protein (6.3-8.2) g/dL Albumin (3.5-5.0) g/dL - EKG Data -: EKG Interpreted by Me (EKG shows sinus rhythm rate of 90, VT 150, QRS 70, QTc 467) - Radiology Data Radiology results: report reviewed (T lumbosacral spine does show no evidence of discrete abscess, postsurgical changes), image reviewed Disposition Clinical Impression: Postoperative pain Disposition: HOME SELF-CARE Condition: Good Instructions (If sedation given, give patient instructions): Acute Low Back Pain (ED) Is patient prescribed a controlled substance at d/c from ED?: No Referrals: Mario Carrion Jr, DO [Primary Care Provider] - 1-2 days
[2019-01-20 22:46] LABS: Basophils # (A) 0.1 k/uL (0-0.2); Basophils % (A) 1 %; Eosinophils # (A) 0.3 k/uL (0-0.7); Eosinophils % (A) 2 %; HCT 39.3 % (39.0-53.0); HGB 12.4 gm/dL (13.0-17.5); Hypochromasia Slight; Lymphocytes # (A) 2.5 k/uL (1.0-4.8); Lymphocytes % (A) 18 %; MCH 27.6 pg (25.0-35.0); MCHC 31.5 g/dL (31.0-37.0); MCV 87.5 fL (80.0-100.0); Mean Platelet Volume 5.2; Monocytes # (A) 0.8 k/uL (0-1.0); Monocytes % (A) 6 %; Neutrophils % (A) 72 %; Platelet Count 546 k/uL (150-450); RBC 4.49 m/uL (4.30-5.90); RDW 15.9 % (11.5-15.5); WBC 13.9 k/uL (3.8-10.6)
[2019-01-20 22:54] LABS: INR 0.9 (<1.2); Prothrombin Time 9.6 sec (9.0-12.0)
[2019-01-20 23:06] LABS: ALT 15 U/L (21-72); AST 19 U/L (17-59); African American GFR (CKD) >90 (>60 ml/min/1.73 sqM); Albumin 3.8 g/dL (3.5-5.0); Alkaline Phosphatase 171 U/L (38-126); Anion Gap 7 mmol/L; Blood Urea Nitrogen 27 mg/dL (9-20); Calcium 10.4 mg/dL (8.4-10.2); Carbon Dioxide 24 mmol/L (22-30); Chloride 108 mmol/L (98-107); Creatine Kinase <20 U/L (55-170); Glucose 109 mg/dL (74-99); Magnesium 1.7 mg/dL (1.6-2.3); Phosphorus 3.5 mg/dL (2.5-4.5); Potassium 4.6 mmol/L (3.5-5.1); Sodium 139 mmol/L (137-145); Total Bilirubin 0.2 mg/dL (0.2-1.3); Total Protein 7.5 g/dL (6.3-8.2)
--- NOTE | 2019-01-20 23:42 | CT ---
EXAMINATION TYPE: CT thor lumbar spine w con DATE OF EXAM: 01/20/2019 COMPARISON: None HISTORY: R/O Abcess Pain. CT DLP: 1019.60 mGycm Automated exposure control for dose reduction was used. CONTRAST: Performed with IV Contrast, patient injected with 100 mL of Isovue 300. FINDINGS: Multiple axial sections were obtained from T1 to assess to vertebra with intravenous contrast. Thoracic and lumbar vertebra have fairly normal alignment. There is 7 mm anterior subluxation of L5 i n relation S1. There is rods and screws fusing posteriorly lumbar spine from L3 to S1. There is metal artifact in the posterior the detail. Thoracic vertebra show no paraspinal mass. The posterior eleme nts in the thoracic spine appear intact. There is 5% depression of T12 vertebra. There is 15% wedging of T9. There is 10% wedging of T7. There is some leaking is fluid and stranding at the posterior lumbar spine at the surgery site. Detai l in the spinal canal is severely limited by the metal artifact. There is multilevel laminectomy. The re is no lumbar paraspinal fluid collection. I see no pathologic enhancement. There is no significant mass effect. Sacroiliac joints appear normal. IMPRESSION: Postsurgical changes with multilevel posterior fusion surgery. L5-S1 first-degree spondylolisthesis. No evidence of a spinal abscess. No sign of osteomyelitis. Mild compression fractures in the thoracic spine of uncertain age. Subluxation at L5-S1 unchanged com pared to MR scan of 08/21/2018. IMPRESSION:
[2019-01-21 00:41] VITALS: BP 128/89; PULSE 95; RESP 15; TEMP 98.5
== END 2019-01-21 00:41 | disposition home or self-care (01) ==
LOC: EC 21:47
DX: G89.18 Other acute postprocedural pain (principal); M54.5 Low back pain; M96.89 Other intraoperative and postprocedural complications and disorders of the musculoskeletal system; R00.0 Tachycardia, unspecified; E78.5 Hyperlipidemia, unspecified; I10 Essential (primary) hypertension; E03.9 Hypothyroidism, unspecified; G89.29 Other chronic pain; F17.200 Nicotine dependence, unspecified, uncomplicated; Z88.5 Allergy status to narcotic agent; Z79.82 Long term (current) use of aspirin; Z79.890 Hormone replacement therapy; Z79.891 Long term (current) use of opiate analgesic; Z79.899 Other long term (current) drug therapy; Z98.1 Arthrodesis status
CPT/HCPCS: 99284; 96374; 96361 ×2; 36415; 93005; 80053; 82550; 83605; 83735; 84100; 84484; 85025; 85610; 85730; 87040; 72129; 72132; J1170; Q9967; 87077; 87186

== ENCOUNTER → 2020-07-07 | Outpatient (CLI) | payer OTHER ==
--- NOTE | 2020-07-07 17:17 | FL ---
EXAMINATION TYPE: FL barium swallow DATE OF EXAM: 07/07/2020 CLINICAL INDICATION: 64-year-old male R13.10, dysphagia, GERD, 30 pound weight loss in 2 months. COMPARISON: None Total Fluoroscopy Time: 1 minute 25 seconds Total images: 26. FINDINGS: The swallowing mechanism is normal and hypopharyngeal anatomy is preserved. Thick barium was utilized for assessment of the cervical portion of the esophagus. However, during this initial assessment, we note a moderate to severe irregular stricture of the dist al esophagus extending to the GE junction. There is intermittent passage of contrast beyond the stric ture with a relative obstruction and contrast remains pooled in the thoracic esophagus up to the mid chest level. The exam was stopped at this point. IMPRESSION: Moderate to severe obstruction secondary to an irregular stricture of the distal esophagus. Benign an d malignant etiologies need to be assessed. Distal esophageal cancer should be excluded. A Sevier level critical message alert has been initiated for Mario Carrion Jr, DO via the [employer] Critical Results System on 07/07/2020 5:14 PM. This message alert has been sent to Mario stoner Jr, DO via the preferences provided by the clinician for the receipt of Radiology Critical Finding s. Message ID [id number].
== END | disposition home or self-care (01) ==
LOC: RADUSWWP 07-06 09:23
PROVIDERS: ATTEND Family Medicine
DX: K22.2 Esophageal obstruction (principal)
CPT/HCPCS: 74220

== ENCOUNTER 2020-07-10 08:13 | Day surgery (SDC) | payer OTHER ==
[2020-07-09 11:25] VITALS: BMI 22.9
[2020-07-10] MEDS: LACTATED RINGERS 1,000 ML IV SCH ×2 (08:59→09:12)
[2020-07-10] MEDS ORDERED: LIDOCAINE 1% INJ 10MG/ML (20 ML MDV) ONE (09:15)
[2020-07-10] MEDS ORDERED: PROPOFOL 10 MG/ML 20 ML VIAL IV ONE (09:15)
--- NOTE | 2020-07-10 09:34 | P.OP ---
Date of Procedure: 07/10/20 Preoperative Diagnosis: Esophageal lesion dysphagia Postoperative Diagnosis: Esophageal lesion esophageal stricture at 34 cm from incisors Procedure(s) Performed: Esophagoscopy with biopsy Anesthesia: MAC Surgeon: Rei Frank Estimated Blood Loss (ml): 2 Condition: stable Disposition: PACU Operative Findings: Esophageal lesion with stricture at 34 cm from incisors Description of Procedure: Patient is brought Endo suite placed in the left lateral decubitus position underwent sedation per department of anesthesia timeout performed correct patient correct procedure correct site was verified endoscope was placed through the oropharynx down the esophagus where there was some liquid noted in the proximal esophagus this was suctioned and the proximal esophagus is noted to be slightly dilated. At 34 cm from the incisors there was a stricture and lesion noted. The scope was unable to be passed through this stricture. Multiple biopsies were taken. This was highly concerning for a neoplastic process. Scope was then slowly withdrawn through the rest of the esophagus no other gross abnormalities are noted patient tolerated the procedure well no apparent complications. This report and procedure was discussed with the primary care physician postoperatively who will be referring him to [facility] for further workup and treatment.
[2020-07-10 09:47] VITALS: RESP 18
[2020-07-10] MEDS ORDERED: ONDANSETRON 4 MG/2 ML VIAL IVP ONE (09:56)
[2020-07-10 10:12] VITALS: BP 147/97; PULSE 85
== END 2020-07-10 10:50 | disposition home or self-care (01) ==
LOC: ORWHC2ENDO 08:13
PROVIDERS: ATTEND Student in an Organized Health Care Education/Training Program
DX: C15.3 Malignant neoplasm of upper third of esophagus (principal); K22.2 Esophageal obstruction; E07.9 Disorder of thyroid, unspecified; Z79.890 Hormone replacement therapy; Z79.899 Other long term (current) drug therapy; Z88.5 Allergy status to narcotic agent
CPT/HCPCS: 43202; J2405; J2001; J2704; 88305; 88342

== ENCOUNTER → 2020-07-10 | Outpatient (CLI) | payer OTHER ==
--- NOTE | 2020-07-10 23:46 | CT ---
EXAMINATION TYPE: CT chest abdomen w con DATE OF EXAM: 07/10/2020 COMPARISON: HISTORY: pain CT DLP: 1205.9 mGycm Automated exposure control for dose reduction was used. CONTRAST: Performed with IV Contrast, patient injected with 100 mL of Isovue 300. Images were obtained from the thoracic inlet to the floor the iliac crests with IV contrast. FINDINGS: There is retained fluid in the esophagus. Mediastinum is normal. There are no hilar masses. Thoracic aorta shows no aneurysm or dissection. The ascending aorta measures 3.6 cm. There is small pericardia l effusion. The lungs are clear of consolidation. There is no evidence of a pulmonary mass. There is no pleural effusion. The gallbladder is large. Gallbladder measures up to 4.8 cm in diameter. Intrahepatic bile ducts are not dilated. There is 2.5 cm area of somewhat geographic increased attenuation lateral right lobe of the liver that could be a fatty sparing. There are other smaller variable sized areas in the inferior right lobe of the liver. There is probably a small area also in the left lobe of the liver. There is no adrenal mass. Spleen is intact. There is no pancreatic mass. The stomach is intact. There is small hiatal hernia. There is normal contrast opacification of the kidneys. There are bilateral renal cortical cysts up to 1.5 cm. There is no hydronephrosis. Delayed images show normal renal excretion. There is some artifa ct from retained obtained contrast material in the large bowel. There is no ascites. There is no evid ence of free air. I see no sign of a bowel obstruction. There is small amount of subdiaphragmatic flu id adjacent to the liver and the spleen. No significant fluid seen in the paracolic gutters. There is spondylotic changes in the lower lumbar spine. There is multilevel posterior fusion surgery. There i s some mild L5-S1 subluxation. There is osteopenia. There is slight wedging of T12 10 percent. Simila r change is seen at T7 vertebra. The sternum is intact. There is callus formation apparently related to old manubrial fracture. IMPRESSION: Higher attenuation foci in the liver probably related to areas of fatty sparing. There is probably un derlying fatty liver. Large gallbladder suggestive of gallbladder dysfunction. There is no suspicious pulmonary mass. Retained fluid in the esophagus could relate to reflux disease. Hiatal hernia. Small amount of fluid in the subdiaphragmatic areas around the liver and spleen. Mild compression fractures not significantly different than old CT scan of 01/20/2019. No aortic aneurysm or dissection. No evidence of pulmonary embolism.
== END | disposition home or self-care (01) ==
LOC: RADCTMAIN 20:14
PROVIDERS: ATTEND Nurse Practitioner Family
DX: K44.9 Diaphragmatic hernia without obstruction or gangrene (principal)
CPT/HCPCS: 82565; 84520; 71260; 74160; 36415; Q9967

== ENCOUNTER → 2020-09-11 | Outpatient (CLI) | payer OTHER ==
--- NOTE | 2020-09-11 12:01 | XR ---
EXAMINATION TYPE: XR abdomen 1V DATE OF EXAM: 09/11/2020 10:04 AM CLINICAL HISTORY: Enteric tube placement TECHNIQUE: Single supine KUB image of the abdomen is obtained. COMPARISON: None. FINDINGS: An enteric tube terminates within the stomach. Bowel gas pattern is nonobstructive. Hardware is noted in the bones. IMPRESSION: Overall nonobstructive bowel gas pattern. Enteric tube terminates in the stomach.
== END | disposition home or self-care (01) ==
LOC: RADXRMAIN 09:47
PROVIDERS: ATTEND Family Medicine
DX: Z46.59 Encounter for fitting and adjustment of other gastrointestinal appliance and device (principal)
CPT/HCPCS: 74018

== ENCOUNTER 2020-09-19 04:05 | Inpatient (IN) | payer OTHER ==
[2020-09-19] MEDS ORDERED: MORPHINE SULFATE 4 MG/ML SYRINGE IV STA (04:30)
[2020-09-19] MEDS ORDERED: SODIUM CHLORIDE 0.9% 1,000 ML IV STA (04:39)
[2020-09-19] MEDS ORDERED: SODIUM CHLORIDE 0.9% 1,600 ML IV ONE (04:39)
[2020-09-19] MEDS ORDERED: PIPERACILLIN-TAZOBACTAM 3.375 GM in SODIUM CHLORIDE 0.9% 100 ML IVPB STA (04:40)
[2020-09-19] MEDS ORDERED: ONDANSETRON 4 MG/2 ML VIAL IVP STA (04:54)
[2020-09-19 05:02] LABS: Calcium 10.7 mg/dL (8.4-10.2); Potassium 4.1 mmol/L (3.5-5.1); Total Bilirubin 0.5 mg/dL (0.2-1.3)
[2020-09-19 05:09] LABS: Partial Thromboplastin Time 21.6 sec (22.0-30.0); Prothrombin Time 11.1 sec (9.0-12.0)
[2020-09-19 05:19] LABS: Anisocytosis Slight; HCT 33.6 % (39.0-53.0); HGB 11.1 gm/dL (13.0-17.5); Hypochromasia Slight; MCH 32.6 pg (25.0-35.0); MCHC 32.9 g/dL (31.0-37.0); Macrocytosis Moderate; Mean Platelet Volume 8.4; Platelet Count 280 k/uL (150-450); Poikilocytosis Slight; RBC 3.39 m/uL (4.30-5.90); RDW 18.7 % (11.5-15.5)
[2020-09-19] MEDS ORDERED: NOREPINEPHRINE 4 MG in SODIUM CHLORIDE 0.9% 250 ML IV ONE (05:41)
--- NOTE | 2020-09-19 05:43 | CT ---
EXAMINATION TYPE: CT abdomen pelvis wo con DATE OF EXAM: 09/19/2020 COMPARISON: 07/10/2020 HISTORY: N&V CT DLP: 841.60 mGycm Automated exposure control for dose reduction was used. There is mild atelectasis at the lung bases. There is large amount of portal venous air. There is clair ogastric tube in the stomach. The stomach is dilated with fluid. There is no pancreatic mass. Spleen is intact. The bile ducts are not dilated. There is large amount of air in the superior mesenteric ve in. There is dilated multiple loops of small bowel with fluid levels. Bladder distends smoothly. There is no hydronephrosis. Kidneys have normal size. There is no adrenal mass. There is small pneumoperitoneum. There is some mild wall thickening of the large bowel. There is posterior fusion surgery in the lumbar spine from L3 to S1. The bony pelvis is intact. The h ip joints are intact. There is a first-degree L5-S1 spondylolisthesis. There is nasogastric tube in the stomach. There is some mild wall thickening of the distal esophagus. IMPRESSION: Extensive portal venous air that could relate to gangrenous bowel. There is diffuse intestinal ileus. Small pneumoperitoneum. These abnormalities appear new compared to old exam. Large stomach consistent with gastroparesis. Mild pneumoperitoneum. Wall thickening of the distal eso phagus unchanged compared to old exam. This exam was discussed with Dr. Mena at 5:45 AM.
[2020-09-19] MEDS ORDERED: HYDROmorphone 0.5 MG/0.5 ML SYRINGE IVP STA ×2 (05:47→07:42)
--- NOTE | 2020-09-19 05:59 | ED ---
Nausea/Vomiting/Diarrhea HPI - General Chief complaint: Nausea/Vomiting/Diarrhea Stated complaint: nausea, vomiting Time Seen by Provider: 09/19/20 04:09 Source: EMS Mode of arrival: EMS Limitations: altered mental status (Patient appears delirious) - History of Present Illness Initial comments: This patient is a 64-year-old man diagnosed approximately 3 months ago with esophageal cancer. He has been taking radiation which he recently come treated as she has not been able to swallow anything. Patient taking feedings and fluids through Dobbhoff tube. Over the past couple of days, patient has had progressive abdominal pain and distention. He is now having intractable pain and vomiting. Patient also feeling very weak. MD complaint: nausea, vomiting, abdominal pain -: days(s) Description of Vomiting: food contents, bilious Associated Abdominal Pain: Yes Location: diffuse Radiation: none Severity: mild Quality: cramping, aching Consistency: constant Improves with: none Worsens with: none Context: other (Recent radiation) Associated Symptoms: nausea/vomiting - Related Data Home Medications Medication Instructions Recorded Confirmed Levothyroxine Sodium [Synthroid] 100 mcg PO DAILY 02/09/18 09/19/20 Aspirin EC [Ecotrin Low Dose] 81 mg PO DAILY 09/19/20 09/19/20 Buprenorphine HCl/Naloxone HCl 0.5 film SL BID PRN 09/19/20 09/19/20 [Buprenorp-Nalox 4-1 mg Sl Film] Loratadine 10 mg PO DAILY 09/19/20 09/19/20 Multivitamins with Iron, Ped 10 ml PO DAILY 09/19/20 09/19/20 [Poly--Deb + Iron Drops (formulary)] Ondansetron Odt [Zofran Odt] 8 mg PO Q8HR PRN 09/19/20 09/19/20 Polyethylene Glycol 3350 [Clearlax] 17 gm PO BID PRN 09/19/20 09/19/20 clonazePAM [KlonoPIN] 0.5 mg PO Q8H PRN 09/19/20 09/19/20 lisinopriL [Zestril] 10 mg PO DAILY 09/19/20 09/19/20 Allergies Allergy/AdvReac Type Severity Reaction Status Date / Time codeine AdvReac Itching Verified 09/19/20 10:06 oxycodone [From OxyContin] AdvReac patient Verified 09/19/20 10:06 does not want Review of Systems ROS Statement: Those systems with pertinent positive or pertinent negative responses have been documented in the HPI. ROS Other: All systems not noted in ROS Statement are negative. Limitations: ROS unobtainable due to patients medical condition (Delirious) Constitutional: Reports: chills, weakness Respiratory: Reports: dyspnea. Denies: cough Cardiovascular: Reports: edema. Denies: chest pain, palpitations, syncope Gastrointestinal: Reports: abdominal pain, nausea, vomiting. Denies: diarrhea Genitourinary: Denies: dysuria, hematuria, testicular pain Musculoskeletal: Denies: back pain Skin: Denies: rash Neurological: Denies: headache, weakness, numbness Hematological/Lymphatic: Denies: easy bleeding Past Medical History Past Medical History: Cancer, Hyperlipidemia, Hypertension, Thyroid Disorder Additional Past Medical History / Comment(s): having difficulty swallowing,has narrowing of esophagus on swallow test completed 07-07-20,weight loss of 20 lbs over last 2 months, hx chronic back pain, hypothyroid, espohageal cancer History of Any Multi-Drug Resistant Organisms: None Reported Past Surgical History: Back Surgery, Hernia Repair, Joint Replacement, Tonsillectomy Additional Past Surgical History / Comment(s): R/L elbow sx,lt total knee Past Anesthesia/Blood Transfusion Reactions: No Reported Reaction Past Psychological History: No Psychological Hx Reported Smoking Status: Current every day smoker Past Alcohol Use History: None Reported Past Drug Use History: Marijuana - Past Family History Mother History Unknown: Yes Additional Family Medical History / Comment(s): unknown parents hx-pt adopted Daughter(s) Family Medical History: Cancer General Exam Limitations: no limitations General appearance: alert, in distress Head exam: Present: atraumatic, normocephalic Eye exam: Present: normal appearance. Absent: scleral icterus, conjunctival injection ENT exam: Present: mucous membranes dry Neck exam: Present: normal inspection Respiratory exam: Present: respiratory distress (Mild tachypnea), rhonchi. Abse nt: wheezes, rales, stridor, accessory muscle use Cardiovascular Exam: Present: normal rhythm, tachycardia, normal heart sounds. Absent: systolic murmur, diastolic murmur, rubs, gallop GI/Abdominal exam: Present: distended, tenderness (There is moderate diffuse tenderness with guarding), guarding, hypoactive bowel sounds. Absent: rebound, rigid, mass, pulsatile mass, hernia Extremities exam: Present: pedal edema (Trace edema ankles bilaterally). Absent: tenderness, normal capillary refill, joint swelling, calf tenderness Back exam: Present: normal inspection Neurological exam: Present: alert, other (Appears delirious but following simple commands). Absent: oriented X3, motor sensory deficit Skin exam: Present: warm, dry, intact, mottled. Absent: rash Course Vital Signs 09/19/20 09/19/20 09/19/20 04:11 05:01 05:47 Temperature 97.5 F L Pulse Rate 105 H 101 H 89 Respiratory 22 24 24 Rate Blood Pressure 129/110 92/35 72/51 O2 Sat by Pulse 93 L 93 L 93 L Oximetry 09/19/20 09/19/20 09/19/20 06:06 06:19 06:46 Temperature Pulse Rate 90 92 Respiratory 24 22 Rate Blood Pressure 91/56 79/51 78/47 O2 Sat by Pulse 91 L 93 L Oximetry 09/19/20 09/19/20 09/19/20 06:55 07:37 08:00 Temperature Pulse Rate 89 93 Respiratory 22 22 Rate Blood Pressure 82/49 86/47 76/52 O2 Sat by Pulse 91 L 91 L Oximetry 09/19/20 08:32 Temperature 97.5 F L Pulse Rate 93 Respiratory 22 Rate Blood Pressure 76/52 O2 Sat by Pulse 91 L Oximetry - Reevaluation(s) Reevaluation #1: 09/19/20 05:57 Received a call from radiologist and we discussed the CT findings. I then discussed the findings with patient and and also with Dr. Bagley, the surgeon who was on-call. Patient requiring fluid resuscitation, antibiotics, at this point pressors as well. Discussion with patient and reveals that he at this point has decided he does not want any heroic interventions. No mechanical life support or intubation. They still request medical therapy as well as comfort. Procedures - Central Line Placement Right Femoral Consent Obtained: written consent Patient Placed on Monitor/Pulse Ox: Yes Prep: mask, gown, gloves Central Line Prep: Chlorhexidine scrub Local Anesthesia Used: Lidocaine 1% Ultrasound Used for Placement: Yes Central Line Lumen Inserted: triple Bloods Obtained for Lab: No Central Line Position: good blood return, all ports aspirated, flushed, capped, sutured in place with nylon Dressing Applied: Tegaderm Patient Tolerated Procedure: well Complications: none Medical Decision Making - Lab Data Result diagrams: 09/19/20 04:35 09/19/20 04:35 Lab Results 09/19/20 09/19/20 09/19/20 Range/Units 04:35 04:35 04:35 WBC 6.5 (3.8-10.6) k/uL RBC 3.39 L (4.30-5.90) m/uL Hgb 11.1 L (13.0-17.5) gm/dL Hct 33.6 L (39.0-53.0) % MCV 99.0 (80.0-100.0) fL MCH 32.6 (25.0-35.0) pg MCHC 32.9 (31.0-37.0) g/dL RDW 18.7 H (11.5-15.5) % Plt Count 280 (150-450) k/uL MPV 8.4 Neutrophils % (Manual) 57 % Band Neuts % (Manual) 36 % Lymphocytes % (Manual) 2 % Monocytes % (Manual) 5 % Metamyelocytes % 1 % Neutrophils # (Manual) 6.00 (1.3-7.7) k/uL Lymphocytes # (Manual) 0.13 L (1.0-4.8) k/uL Monocytes # (Manual) 0.33 (0-1.0) k/uL Metamyelocytes # (Man) 0.07 H (0) k/uL Nucleated RBCs 2 H (0-0) /100 WBC Manual Slide Review Performed Polychromasia Present Hypochromasia Slight Poikilocytosis Slight Anisocytosis Slight Anisocytosis (manual) Present Macrocytosis Moderate PT 11.1 (9.0-12.0) sec INR 1.0 (<1.2) APTT 21.6 L (22.0-30.0) sec Sodium (137-145) mmol/L Potassium (3.5-5.1) mmol/L Chloride (98-107) mmol/L Carbon Dioxide (22-30) mmol/L Anion Gap mmol/L BUN (9-20) mg/dL Creatinine (0.66-1.25) mg/dL Est GFR (CKD-EPI)AfAm (>60 ml/min/1.73 sqM) Est GFR (CKD-EPI)NonAf (>60 ml/min/1.73 sqM) Glucose (74-99) mg/dL Lactic Ac Sepsis Rflx Plasma Lactic Acid Jared (0.7-2.0) mmol/L Calcium (8.4-10.2) mg/dL Total Bilirubin (0.2-1.3) mg/dL AST (17-59) U/L ALT (4-49) U/L Alkaline Phosphatase (38-126) U/L Troponin I (0.000-0.034) ng/mL Total Protein (6.3-8.2) g/dL Albumin (3.5-5.0) g/dL Amylase (30-110) U/L Lipase (23-300) U/L Urine Color Yellow Urine Appearance Cloudy (Clear) Urine pH 5.0 (5.0-8.0) Ur Specific [place] 1.020 (1.001-1.035) Urine Protein Trace H (Negative) Urine Glucose (UA) Negative (Negative) Urine Ketones Negative (Negative) Urine Blood Negative (Negative) Urine Nitrite Negative (Negative) Urine Bilirubin Negative (Negative) Urine Urobilinogen <2.0 (<2.0) mg/dL Ur Leukocyte Esterase Negative (Negative) Urine WBC 1 (0-5) /hpf Hyaline Casts 4 H (0-2) /lpf Urine Mucus Rare H (None) /hpf 09/19/20 09/19/20 09/19/20 Range/Units 04:35 04:35 04:35 WBC (3.8-10.6) k/uL RBC (4.30-5.90) m/uL Hgb (13.0-17.5) gm/dL Hct (39.0-53.0) % MCV (80.0-100.0) fL MCH (25.0-35.0) pg MCHC (31.0-37.0) g/dL RDW (11.5-15.5) % Plt Count (150-450) k/uL MPV Neutrophils % (Manual) % Band Neuts % (Manual) % Lymphocytes % (Manual) % Monocytes % (Manual) % Metamyelocytes % % Neutrophils # (Manual) (1.3-7.7) k/uL Lymphocytes # (Manual) (1.0-4.8) k/uL Monocytes # (Manual) (0-1.0) k/uL Metamyelocytes # (Man) (0) k/uL Nucleated RBCs (0-0) /100 WBC Manual Slide Review Polychromasia Hypochromasia Poikilocytosis Anisocytosis Anisocytosis (manual) Macrocytosis PT (9.0-12.0) sec INR (<1.2) APTT (22.0-30.0) sec Sodium 140 (137-145) mmol/L Potassium 4.1 (3.5-5.1) mmol/L Chloride 110 H (98-107) mmol/L Carbon Dioxide 14 L (22-30) mmol/L Anion Gap 16 mmol/L BUN 58 H (9-20) mg/dL Creatinine 2.68 H (0.66-1.25) mg/dL Est GFR (CKD-EPI)AfAm 28 (>60 ml/min/1.73 sqM) Est GFR (CKD-EPI)NonAf 24 (>60 ml/min/1.73 sqM) Glucose 135 H (74-99) mg/dL Lactic Ac Sepsis Rflx Plasma Lactic Acid Jared 7.2 H* (0.7-2.0) mmol/L Calcium 10.7 H (8.4-10.2) mg/dL Total Bilirubin 0.5 (0.2-1.3) mg/dL AST 29 (17-59) U/L ALT 26 (4-49) U/L Alkaline Phosphatase 79 (38-126) U/L Troponin I <0.012 (0.000-0.034) ng/mL Total Protein 6.0 L (6.3-8.2) g/dL Albumin 3.0 L (3.5-5.0) g/dL Amylase 36 (30-110) U/L Lipase 15 L (23-300) U/L Urine Color Urine Appearance (Clear) Urine pH (5.0-8.0) Ur Specific [place] (1.001-1.035) Urine Protein (Negative) Urine Glucose (UA) (Negative) Urine Ketones (Negative) Urine Blood (Negative) Urine Nitrite (Negative) Urine Bilirubin (Negative) Urine Urobilinogen (<2.0) mg/dL Ur Leukocyte Esterase (Negative) Urine WBC (0-5) /hpf Hyaline Casts (0-2) /lpf Urine Mucus (None) /hpf 09/19/20 Range/Units 05:12 WBC (3.8-10.6) k/uL RBC (4.30-5.90) m/uL Hgb (13.0-17.5) gm/dL Hct (39.0-53.0) % MCV (80.0-100.0) fL MCH (25.0-35.0) pg MCHC (31.0-37.0) g/dL RDW (11.5-15.5) % Plt Count (150-450) k/uL MPV Neutrophils % (Manual) % Band Neuts % (Manual) % Lymphocytes % (Manual) % Monocytes % (Manual) % Metamyelocytes % % Neutrophils # (Manual) (1.3-7.7) k/uL Lymphocytes # (Manual) (1.0-4.8) k/uL Monocytes # (Manual) (0-1.0) k/uL Metamyelocytes # (Man) (0) k/uL Nucleated RBCs (0-0) /100 WBC Manual Slide Review Polychromasia Hypochromasia Poikilocytosis Anisocytosis Anisocytosis (manual) Macrocytosis PT (9.0-12.0) sec INR (<1.2) APTT (22.0-30.0) sec Sodium (137-145) mmol/L Potassium (3.5-5.1) mmol/L Chloride (98-107) mmol/L Carbon Dioxide (22-30) mmol/L Anion Gap mmol/L BUN (9-20) mg/dL Creatinine (0.66-1.25) mg/dL Est GFR (CKD-EPI)AfAm (>60 ml/min/1.73 sqM) Est GFR (CKD-EPI)NonAf (>60 ml/min/1.73 sqM) Glucose (74-99) mg/dL Lactic Ac Sepsis Rflx Y Plasma Lactic Acid Jared (0.7-2.0) mmol/L Calcium (8.4-10.2) mg/dL Total Bilirubin (0.2-1.3) mg/dL AST (17-59) U/L ALT (4-49) U/L Alkaline Phosphatase (38-126) U/L Troponin I (0.000-0.034) ng/mL Total Protein (6.3-8.2) g/dL Albumin (3.5-5.0) g/dL Amylase (30-110) U/L Lipase (23-300) U/L Urine Color Urine Appearance (Clear) Urine pH (5.0-8.0) Ur Specific [place] (1.001-1.035) Urine Protein (Negative) Urine Glucose (UA) (Negative) Urine Ketones (Negative) Urine Blood (Negative) Urine Nitrite (Negative) Urine Bilirubin (Negative) Urine Urobilinogen (<2.0) mg/dL Ur Leukocyte Esterase (Negative) Urine WBC (0-5) /hpf Hyaline Casts (0-2) /lpf Urine Mucus (None) /hpf - EKG Data -: EKG Interpreted by Me EKG shows normal: sinus rhythm, axis (Normal), intervals (Normal), ST-T waves (Normal) Rate: tachycardia (Rate 108 bpm) Interpretation: nonspecific ST-T wave changes Critical Care Time Critical Care Time: Yes (45 minutes) Disposition Clinical Impression: Hypotension, Intra-abdominal free air of unknown etiology, Lactic acidosis, Acute renal failure, Septic shock Disposition: ADMITTED IP TO THIS HOSP Condition: Critical Is patient prescribed a controlled substance at d/c from ED?: No
[2020-09-19] MEDS ORDERED: HYDROmorphone 1 MG/ML 1 ML SYRINGE IVP STA (06:12)
[2020-09-19 06:31] LABS: Band Neutrophils % 36 %; Lymphocytes # (M) 0.13 k/uL (1.0-4.8); Metamyelocytes # (M) 0.07 k/uL (0); Metamyelocytes % 1 %; Monocytes # (M) 0.33 k/uL (0-1.0); Neutrophils % (M) 57 %; Nucleated Red Blood Cells 2 /100 WBC (0-0); Total Cells Counted 200
[2020-09-19 06:32] LABS: Anisocytosis (M) Present; Polychromasia Present; WBC 6.5 k/uL (3.8-10.6)
[2020-09-19] MEDS ORDERED: LIDOCAINE 1% INJ 10MG/ML (20 ML MDV) SQ ONE (06:42)
[2020-09-19] MEDS ORDERED: SODIUM CHLORIDE 0.9% 1,000 ML IV ONE (07:00)
[2020-09-19] MEDS ORDERED: MORPHINE SULFATE 4 MG/ML SYRINGE IV PRN ×2 (07:10→12:55)
[2020-09-19] MEDS ORDERED: HYDROmorphone 1 MG/ML 1 ML SYRINGE IVP PRN ×2 (07:10→11:35)
[2020-09-19] MEDS ORDERED: NALOXONE 0.4 MG/ML 1 ML VIAL IV PRN (07:10)
[2020-09-19] MEDS ORDERED: SODIUM CHLORIDE 0.9% 1,000 ML IV SCH (07:15)
[2020-09-19] MEDS ORDERED: NOREPINEPHRINE 32 MG in SODIUM CHLORIDE 0.9% 218 ML IV SCH (08:00)
[2020-09-19 08:43] LABS: Appearance,Urine Cloudy (Clear); Bilirubin,Urine Negative (Negative); Blood,Urine Negative (Negative); Color,Urine Yellow; Glucose,Urine (UA) Negative (Negative); Hyaline Casts,Urine 4 /lpf (0-2); Ketones,Urine Negative (Negative); Leukocyte Esterase,Urine Negative (Negative); Mucus,Urine Rare /hpf; Nitrite,Urine Negative (Negative); Protein,Urine Trace (Negative); Urobilinogen,Urine <2.0 mg/dL (<2.0); WBC,Urine 1 /hpf (0-5)
[2020-09-19] MEDS ORDERED: PANTOPRAZOLE 40 MG/10 ML VIAL IV SCH (09:00)
[2020-09-19 09:19] LABS: Glucose,Whole Blood 127 mg/dL (75-99)
[2020-09-19] MEDS ORDERED: ONDANSETRON 4 MG/2 ML VIAL IVP PRN ×2 (09:56→10:56)
--- NOTE | 2020-09-19 10:39 | P.CNPUL ---
History of Present Illness Consult date: 09/19/20 Requesting physician: Mario Carrion Jr Reason for consult: dyspnea, other Chief complaint: Abdominal pain, nausea, vomiting, diarrhea. History of present illness: Pulmonary consult dated 09/19/2020. 64-year-old male, who was recently diagnosed maybe 3 months ago, with esophageal cancer. He apparently was taking some radiation treatments. I forcefully, he was not able to really swallow, and a Dobbhoff tube was placed. Apparently over the last couple of days, he's had progressive abdominal pain and distention, nausea, vomiting, and diarrhea. The pain apparently became intractable and b ecame very weak, which is why he came into the emergency room. He was evaluated in the ER. The patient apparently has a history also of hyperlipidemia, hypertension, and hypothyroidism. The patient apparently was taking Suboxone, but he states that apparently be medication was not controlling his pain. The patient is apparently lost about 20 pounds over the last couple of months. Currently, he's on 5 L nasal cannula. He is getting norepinephrine at 3.6 mcg/m. And also getting fluids at 130 mL an hour, saline. In addition, the patient did get 2 L of saline in the emergency department. We were able to speak to the patient at the bedside, and the patient states that he did not want any resuscitation. In addition, the nurses tell us that he may decide to go comfort measures. Currently labs include a white count 6.5, hemoglobin 11.1, hematocrit 33.6, and platelet count 280,000. PT 11.1, INR 1, and PTT 21.6. Sodium 140, potassium 4.1, chlorides 110, CO2 14. Anion gap is 16, BUN 58, creatinine 2.68. Lactic acid was 7.2, repeat 4.2. Urine was essentially negative. CT of the abdomen and pelvis showed extensive portal venous air that could relate to gangrenous bowel. There is diffuse interstitial ileus, and small pneumoperitoneum. These new abnormalities were not seen on the prior CAT scan dated July 10. There is a large stomach consistent with gastroparesis, mild pneumoperitoneum, and wall thickening of the distal esophagus. Review of Systems REVIEW OF SYSTEMS: CONSTITUTIONAL: Weakness. NEUROLOGIC: [ Negative.] HEENT: [ Negative.] CARDIAC: [Negative.] PULMONARY: [Negative.] GI: Nausea, vomiting, diarrhea, abdominal pain, and abdominal distention. : [Negative.] RHEUMATOLOGIC: [ Negative.] IMMUNOLOGIC: [ Negative.] ENDOCRINE: [Negative. ] DERMATOLOGIC: [Negative.] Past Medical History Past Medical History: Cancer, Hyperlipidemia, Hypertension, Thyroid Disorder Additional Past Medical History / Comment(s): having difficulty swallowing,has narrowing of esophagus on swallow test completed 07-07-20,weight loss of 20 lbs over last 2 months, hx chronic back pain, hypothyroid, espohageal cancer History of Any Multi-Drug Resistant Organisms: None Reported Past Surgical History: Back Surgery, Hernia Repair, Joint Replacement, Tonsillectomy Additional Past Surgical History / Comment(s): R/L elbow sx,lt total knee Past Anesthesia/Blood Transfusion Reactions: No Reported Reaction Past Psychological History: No Psychological Hx Reported Smoking Status: Current every day smoker Past Alcohol Use History: None Reported Past Drug Use History: Marijuana - Past Family History Mother History Unknown: Yes Additional Family Medical History / Comment(s): unknown parents hx-pt adopted Daughter(s) Family Medical History: Cancer Medications and Allergies Home Medications Medication Instructions Recorded Confirmed Type Levothyroxine Sodium [Synthroid] 100 mcg PO DAILY 02/09/18 09/19/20 History Aspirin EC [Ecotrin Low Dose] 81 mg PO DAILY 09/19/20 09/19/20 History Buprenorphine HCl/Naloxone HCl 0.5 film SL BID PRN 09/19/20 09/19/20 History [Buprenorp-Nalox 4-1 mg Sl Film] Loratadine 10 mg PO DAILY 09/19/20 09/19/20 History Multivitamins with Iron, Ped 10 ml PO DAILY 09/19/20 09/19/20 History [Poly--Deb + Iron Drops (formulary)] Ondansetron Odt [Zofran Odt] 8 mg PO Q8HR PRN 09/19/20 09/19/20 History Polyethylene Glycol 3350 [Clearlax] 17 gm PO BID PRN 09/19/20 09/19/20 History clonazePAM [KlonoPIN] 0.5 mg PO Q8H PRN 09/19/20 09/19/20 History lisinopriL [Zestril] 10 mg PO DAILY 09/19/20 09/19/20 History Allergies Allergy/AdvReac Type Severity Reaction Status Date / Time codeine AdvReac Itching Verified 09/19/20 10:06 oxycodone [From OxyContin] AdvReac patient Verified 09/19/20 10:06 does not want Physical Exam Osteopathic Statement: *. No significant issues noted on an osteopathic structural exam other than those noted in the History and Physical/Consult. Vitals: Vital Signs Temp Pulse Resp BP Pulse Ox 09/19/20 10:00 98 38 H 105/60 91 L 09/19/20 09:45 95 36 H 98/61 91 L 09/19/20 09:30 92 35 H 81/45 88 L 09/19/20 09:15 96.1 F L 87 32 H 79/45 89 L 09/19/20 08:32 97.5 F L 93 22 76/52 91 L 09/19/20 08:00 93 22 76/52 91 L 09/19/20 07:37 89 22 86/47 91 L 09/19/20 06:55 82/49 09/19/20 06:46 92 22 78/47 93 L 09/19/20 06:19 79/51 09/19/20 06:06 90 24 91/56 91 L 09/19/20 05:47 89 24 72/51 93 L 09/19/20 05:01 101 H 24 92/35 93 L 09/19/20 04:11 97.5 F L 105 H 22 129/110 93 L Intake and Output 09/18/20 09/19/20 09/19/20 22:59 06:59 14:59 Intake Total 14.784 262.595 Output Total 1200 50 Balance -1185.216 212.595 Intake: IV 260 Sodium Chloride 0.9% 1, 260 000 ml @ 130 mls/hr IV . Q7H42M [facility] Rx#:[id number] Intake, IV Titration 14.784 2.595 Amount Norepinephrine 32 mg In 2.595 Sodium Chloride 0.9% 218 ml @ 0.05 MCG/KG/MIN 1. 711 mls/hr IV .Q24H [facility] Rx#:[id number] Norepinephrine 4 mg In 14.784 Sodium Chloride 0.9% 250 ml @ 0.05 MCG/KG/MIN 13. 903 mls/hr IV .[id number] [facility] Rx#:[id number] Output: Gastric Drainage 1200 Urine 50 Uretheral ([place]) 50 Other: Weight 72.983 kg Oriented 3, complaining of severe abdominal pain. No respiratory distress. Currently on 5 L. HEENT examination is grossly unremarkable. Transnasal Dobbhoff tube noted. Neck supple. Full range of motion. No adenopathy thyromegaly or neck vein distention. Cardiovascular examination reveals regular rhythm rate. S1-S2 normal. No S3 or S4. No discernible murmur noted. Heart sounds are distant. Heart rate 98 bpm. Lungs reveal bilateral diffuse rhonchi. Breath sounds are equal bilaterally. No wheezes or crackles. Abdomen extremely distended, with tenderness on palpation. No distinct mass. No bowel sounds. Extremities are intact. No cyanosis clubbing or edema. Skin is without rash or lesion. Neurologic examination is brief but nonfocal. Results - Laboratory Findings CBC and BMP: 09/19/20 04:35 09/19/20 04:35 PT/INR, D-dimer PT 11.1 sec (9.0-12.0) 09/19/20 04:35 INR 1.0 (<1.2) 09/19/20 04:35 Abnormal lab findings: Abnormal Labs 09/19/20 09/19/20 09/19/20 04:35 04:35 04:35 RBC 3.39 L Hgb 11.1 L Hct 33.6 L RDW 18.7 H Lymphocytes # (Manual) 0.13 L Metamyelocytes # (Man) 0.07 H Nucleated RBCs 2 H APTT 21.6 L Chloride Carbon Dioxide BUN Creatinine Glucose POC Glucose (mg/dL) Plasma Lactic Acid Jared Calcium Total Protein Albumin Lipase Urine Protein Trace H Hyaline Casts 4 H Urine Mucus Rare H 09/19/20 09/19/20 09/19/20 04:35 04:35 08:30 RBC Hgb Hct RDW Lymphocytes # (Manual) Metamyelocytes # (Man) Nucleated RBCs APTT Chloride 110 H Carbon Dioxide 14 L BUN 58 H Creatinine 2.68 H Glucose 135 H POC Glucose (mg/dL) Plasma Lactic Acid Jared 7.2 H* 4.2 H* Calcium 10.7 H Total Protein 6.0 L Albumin 3.0 L Lipase 15 L Urine Protein Hyaline Casts Urine Mucus 09/19/20 09:08 RBC Hgb Hct RDW Lymphocytes # (Manual) Metamyelocytes # (Man) Nucleated RBCs APTT Chloride Carbon Dioxide BUN Creatinine Glucose POC Glucose (mg/dL) 127 H Plasma Lactic Acid Jared Calcium Total Protein Albumin Lipase Urine Protein Hyaline Casts Urine Mucus Assessment and Plan Assessment: Severe abdominal distention/pain/nausea/vomiting/diarrhea, CONSISTENT with possible gangrenous bowel and ileus. Status post recent diagnosis of esophageal cancer, status post radiation therapy. Severe dysphagia, status post Dobbhoff tube insertion. Anion gap metabolic acidosis. Acute kidney injury. Lactic acidosis. History of hypertension. History of hyperlipidemia. History of hypothyroidism. Plan: Plan dated 09/19/2020. The patient's in very poor shape. He's having severe abdominal distention and pain. Workup in to control his pain with narcotics. In addition, we had a conversation about resuscitation. The patient would not want to be resuscitated and apparently is also considering comfort care. To follow make recommendations were appropriate. Currently, the patient is on 5 L nasal cannula. The patient is receiving norepinephrine for blood pressure support. The patient is being fluid resuscitated. Overall prognosis is poor. Additional recommendations and suggestions are forthcoming. Time with Patient: Greater than 30
[2020-09-19] MEDS ORDERED: MORPHINE SULFATE 4 MG/ML SYRINGE IVP PRN (10:54)
[2020-09-19] MEDS ORDERED: HYDROmorphone 2 MG/ML 1 ML SYRINGE IVP PRN (10:55)
[2020-09-19] MEDS ORDERED: METOCLOPRAMIDE 5 MG/ML 2 ML VIAL IVP PRN (10:56)
--- NOTE | 2020-09-19 11:06 | P.HPIM ---
History of Present Illness H&P Date: 09/19/20 Chief Complaint: Nausea vomiting, diarrhea, abdominal pain 64-year-old male patient well known to to the practice. In June 2020 was diagnosed with esophageal cancer and has been undergoing radiation so surgery could be a possibility. Patient had Dobbhoff tube placed at [facility] as patient was unable to pass solids or liquids have been working well for him. Patient recently had complaints of diarrhea over the past couple weeks that was attributed to his radiation treatments. Until yesterday he had been free of abdominal pain, vomiting, and abdominal distention. Past medical history hyperlipidemia, hypertension, thyroid disorder, weight loss of 20 pounds over the last 2 months prior to cancer diagnosis, history of chronic back pain, back surgery, hernia repair, joint replacement, tonsillectomy, former smoker and patient utilizes marijuana to aid in pain control. Initial labs CBC is white count 6.5, hemoglobin 11.1, hematocrit of 33.6, platelet count of 280. Admission studies PT of 11.1, INR 1.0, APTT 21.6. Chemistry reveals sodium of 140, potassium 4.1, chloride of 110, carbon dioxide 14, NOELLE of 58, creatinine 2.68, glucose 135, lactic acid of 7.2 with repeat of 4.2 after 2 L of IV fluid, calcium 10.7, total protein is 6.0, albumin of 3.0, lipase of 15 and amylase 36. Most recent set of vitals temperature 96.1 axillary, heart rate is 78, respiratory rate of 38, blood pressure 105/60 with patient being on 0.06 mics per kilo per minute of norepinephrine, 91% on 9 L high flow nasal cannula. 0 800 vitals patient temp of 97.5 blood pressure 76/52 maintaining oxygen saturation 91% of 5 L at that time. Patient's Dobbhoff tube was placed to suction 1200 mL of drainage was obtained. CT of the abdomen and pelvis was completed this morning with impression of extensive portal venous air that could relate to gangrenous bowel. There is diffuse intestinal ileus. Small pneumoperitoneum. These abnormalities appear new compared to all exam. Large stomach consistent with gastroparesis. Mild pneumoperitoneum. Wall thickening of distal esophagus unchanged compared to all exam. Currently patient is laying in bed, alert and oriented 3 and following commands. He complains of severe abdominal pain and feeling short of breath. He is able to follow simple commands and answer questions appropriately patient has a Dobbhoff tube in the right near which is connected to low intermittent suction, and Hatch catheter which is draining clear yellow urine. Patient is noted to the ICU with consults to critical care and surgery have been placed. As it stands now patient is not a candidate for surgery and there has been talks of comfort care with family. As it stands at this time patient does not want any heroic intervention, no mechanical life support or intubation but still requests medical therapy as well as comfort. Review of Systems Constitutional: Reports chills, Reports chronic pain, Reports malaise, Reports weakness Ears, nose, mouth and throat: Reports as per HPI Cardiovascular: Reports as per HPI Respiratory: Reports dyspnea Gastrointestinal: Reports abdominal pain, Reports diarrhea, Reports vomiting Genitourinary: Reports as per HPI Musculoskeletal: Reports as per HPI Integumentary: Reports as per HPI Neurological: Reports as per HPI Psychiatric: Reports anxiety Endocrine: Reports as per HPI Hematologic/Lymphatic: Reports as per HPI Allergic/Immunologic: Reports as per HPI Past Medical History Past Medical History: Cancer, Hyperlipidemia, Hypertension, Thyroid Disorder Additional Past Medical History / Comment(s): having difficulty swallowing,has narrowing of esophagus on swallow test completed 07-07-20,weight loss of 20 lbs over last 2 months, hx chronic back pain, hypothyroid, espohageal cancer History of Any Multi-Drug Resistant Organisms: None Reported Past Surgical History: Back Surgery, Hernia Repair, Joint Replacement, Tonsillectomy Additional Past Surgical History / Comment(s): R/L elbow sx,lt total knee Past Anesthesia/Blood Transfusion Reactions: No Reported Reaction Past Psychological History: No Psychological Hx Reported Smoking Status: Current every day smoker Past Alcohol Use History: None Reported Past Drug Use History: Marijuana - Past Family History Mother History Unknown: Yes Additional Family Medical History / Comment(s): unknown parents hx-pt adopted Daughter(s) Family Medical History: Cancer Medications and Allergies Home Medications Medication Instructions Recorded Confirmed Type Levothyroxine Sodium [Synthroid] 100 mcg PO QAM 02/09/18 09/14/20 History Aspirin EC [Ecotrin Low Dose] 81 mg PO DAILY 09/19/20 09/19/20 History Buprenorphine HCl/Naloxone HCl 0.5 film SL BID PRN 09/19/20 09/19/20 History [Buprenorp-Nalox 4-1 mg Sl Film] Loratadine 10 mg PO DAILY 09/19/20 09/19/20 History Multivitamins with Iron, Ped 10 ml PO DAILY 09/19/20 09/19/20 History [Poly--Deb + Iron Drops (formulary)] Ondansetron Odt [Zofran Odt] 8 mg PO Q8HR PRN 09/19/20 09/19/20 History Polyethylene Glycol 3350 [Clearlax] 17 gm PO BID PRN 09/19/20 09/19/20 History clonazePAM [KlonoPIN] 0.5 mg PO Q8H PRN 09/19/20 09/19/20 History lisinopriL [Zestril] 10 mg PO DAILY 09/19/20 09/19/20 History Allergies Allergy/AdvReac Type Severity Reaction Status Date / Time codeine AdvReac Itching Verified 09/19/20 10:06 oxycodone [From OxyContin] AdvReac patient Verified 09/19/20 10:06 does not want Physical Exam Vitals: Vital Signs Temp Pulse Resp BP Pulse Ox 09/19/20 08:32 97.5 F L 93 22 76/52 91 L 09/19/20 08:00 93 22 76/52 91 L 09/19/20 07:37 89 22 86/47 91 L 09/19/20 06:55 82/49 09/19/20 06:46 92 22 78/47 93 L 09/19/20 06:19 79/51 09/19/20 06:06 90 24 91/56 91 L 09/19/20 05:47 89 24 72/51 93 L 09/19/20 05:01 101 H 24 92/35 93 L 09/19/20 04:11 97.5 F L 105 H 22 129/110 93 L Intake and Output 09/18/20 09/19/20 09/19/20 22:59 06:59 14:59 Intake Total 14.784 2.595 Output Total 1200 50 Balance -1185.216 -47.405 Intake: Intake, IV Titration 14.784 2.595 Amount Norepinephrine 32 mg In 2.595 Sodium Chloride 0.9% 218 ml @ 0.05 MCG/KG/MIN 1. 711 mls/hr IV .Q24H [facility] Rx#:[id number] Norepinephrine 4 mg In 14.784 Sodium Chloride 0.9% 250 ml @ 0.05 MCG/KG/MIN 13. 903 mls/hr IV .[id number] [facility] Rx#:[id number] Output: Gastric Drainage 1200 Urine 50 Uretheral (Hatch) 50 Other: Weight 72.983 kg GENERAL: ill-appearing, cachectic, in distress. HEAD: Atraumatic, normocephalic. EYES: Pupils equal round and reactive to light, extraocular movements intact, sclera anicteric, conjunctival injection. ENT:nares patent, oropharynx clear without exudates. Mucous membranes dry. NECK: Normal range of motion, supple without lymphadenopathy or JVD, no thyrome mary LUNGS: Tachypnea, scattered rhonchi bilaterally. No wheezes, rales or accessory muscle use HEART: Regular rate and rhythm without murmurs, rubs or gallops.S1S2 Normal ABDOMEN: Hypoactive bowel sounds, abdomen distended, pain with palpation, guarding. EXTREMITIES: Normal range of motion, trace edema bilateral ankles. No clubbing or cyanosis. NEUROLOGICAL: Cranial nerves II through XII grossly intact. Normal speech. PSYCH: Normal mood, normal affect. SKIN: Warm, Dry, normal turgor, no rashes or lesions noted. Results CBC & Chem 7: 09/19/20 04:35 09/19/20 04:35 Labs: Abnormal Lab Results - Last 24 Hours (Table) 09/19/20 09/19/20 09/19/20 Range/Units 04:35 04:35 04:35 RBC 3.39 L (4.30-5.90) m/uL Hgb 11.1 L (13.0-17.5) gm/dL Hct 33.6 L (39.0-53.0) % RDW 18.7 H (11.5-15.5) % Lymphocytes # (Manual) 0.13 L (1.0-4.8) k/uL Metamyelocytes # (Man) 0.07 H (0) k/uL Nucleated RBCs 2 H (0-0) /100 WBC APTT 21.6 L (22.0-30.0) sec Chloride (98-107) mmol/L Carbon Dioxide (22-30) mmol/L BUN (9-20) mg/dL Creatinine (0.66-1.25) mg/dL Glucose (74-99) mg/dL POC Glucose (mg/dL) (75-99) mg/dL Plasma Lactic Acid Jared (0.7-2.0) mmol/L Calcium (8.4-10.2) mg/dL Total Protein (6.3-8.2) g/dL Albumin (3.5-5.0) g/dL Lipase (23-300) U/L Urine Protein Trace H (Negative) Hyaline Casts 4 H (0-2) /lpf Urine Mucus Rare H (None) /hpf 09/19/20 09/19/20 09/19/20 Range/Units 04:35 04:35 08:30 RBC (4.30-5.90) m/uL Hgb (13.0-17.5) gm/dL Hct (39.0-53.0) % RDW (11.5-15.5) % Lymphocytes # (Manual) (1.0-4.8) k/uL Metamyelocytes # (Man) (0) k/uL Nucleated RBCs (0-0) /100 WBC APTT (22.0-30.0) sec Chloride 110 H (98-107) mmol/L Carbon Dioxide 14 L (22-30) mmol/L BUN 58 H (9-20) mg/dL Creatinine 2.68 H (0.66-1.25) mg/dL Glucose 135 H (74-99) mg/dL POC Glucose (mg/dL) (75-99) mg/dL Plasma Lactic Acid Jared 7.2 H* 4.2 H* (0.7-2.0) mmol/L Calcium 10.7 H (8.4-10.2) mg/dL Total Protein 6.0 L (6.3-8.2) g/dL Albumin 3.0 L (3.5-5.0) g/dL Lipase 15 L (23-300) U/L Urine Protein (Negative) Hyaline Casts (0-2) /lpf Urine Mucus (None) /hpf 09/19/20 Range/Units 09:08 RBC (4.30-5.90) m/uL Hgb (13.0-17.5) gm/dL Hct (39.0-53.0) % RDW (11.5-15.5) % Lymphocytes # (Manual) (1.0-4.8) k/uL Metamyelocytes # (Man) (0) k/uL Nucleated RBCs (0-0) /100 WBC APTT (22.0-30.0) sec Chloride (98-107) mmol/L Carbon Dioxide (22-30) mmol/L BUN (9-20) mg/dL Creatinine (0.66-1.25) mg/dL Glucose (74-99) mg/dL POC Glucose (mg/dL) 127 H (75-99) mg/dL Plasma Lactic Acid Jared (0.7-2.0) mmol/L Calcium (8.4-10.2) mg/dL Total Protein (6.3-8.2) g/dL Albumin (3.5-5.0) g/dL Lipase (23-300) U/L Urine Protein (Negative) Hyaline Casts (0-2) /lpf Urine Mucus (None) /hpf Thrombosis Risk Factor Assmnt - Choose All That Apply Each Factor Represents 1 point: Medical pt on bed rest Each Risk Factor Represents 2 Points: Age 61-74 years, Patient confined to bed Thrombosis Risk Factor Assessment Total Risk Factor Score: 5 Thrombosis Risk Factor Assessment Level: High Risk Assessment and Plan (1) Esophageal cancer Current Visit: Yes Status: Acute Code(s): C15.9 - MALIGNANT NEOPLASM OF ESOPHAGUS, UNSPECIFIED SNOMED Code(s): 630483265 (2) Intra-abdominal free air of unknown etiology Current Visit: Yes Status: Acute Code(s): K66.8 - OTHER SPECIFIED DISORDERS OF PERITONEUM SNOMED Code(s): 63650029 (3) Lactic acidosis Current Visit: Yes Status: Acute Code(s): E87.2 - ACIDOSIS SNOMED Code(s): 34341402 (4) Acute renal failure Current Visit: Yes Status: Acute Code(s): N17.9 - ACUTE KIDNEY FAILURE, UNSPECIFIED SNOMED Code(s): 62580840 (5) Septic shock Current Visit: Yes Status: Acute Code(s): A41.9 - SEPSIS, UNSPECIFIED ORGANISM; R65.21 - SEVERE SEPSIS WITH SEPTIC SHOCK SNOMED Code(s): 54586108 (6) Hypotension Current Visit: Yes Status: Acute Code(s): I95.9 - HYPOTENSION, UNSPECIFIED SNOMED Code(s): 15660286 (7) Difficulty swallowing Current Visit: Yes Status: Acute Code(s): R13.10 - DYSPHAGIA, UNSPECIFIED SNOMED Code(s): 50959797 (8) Nasogastric tube present Current Visit: Yes Status: Acute Code(s): Z97.8 - PRESENCE OF OTHER SPECIFIED DEVICES SNOMED Code(s): 702731580 (9) Dyspnea Current Visit: Yes Status: Acute Code(s): R06.00 - DYSPNEA, UNSPECIFIED SNOMED Code(s): 484786055 (10) History of depression Current Visit: Yes Status: Acute Code(s): Z86.59 - PERSONAL HISTORY OF OTHER MENTAL AND BEHAVIORAL DISORDERS SNOMED Code(s): 332281542 (11) History of anxiety Current Visit: Yes Status: Acute Code(s): Z86.59 - PERSONAL HISTORY OF OTHER MENTAL AND BEHAVIORAL DISORDERS SNOMED Code(s): 741432894 (12) Hypothyroidism Current Visit: Yes Status: Acute Code(s): E03.9 - HYPOTHYROIDISM, UNSPECIFIED SNOMED Code(s): 09263430 (13) Former smoker Current Visit: Yes Status: Acute Code(s): Z87.891 - PERSONAL HISTORY OF NICOTINE DEPENDENCE SNOMED Code(s): 4478232 (14) Abdominal pain Current Visit: No Status: Acute Code(s): R10.9 - UNSPECIFIED ABDOMINAL PAIN SNOMED Code(s): 15565397 (15) Nausea & vomiting Current Visit: No Status: Acute Code(s): R11.2 - NAUSEA WITH VOMITING, UNSPECIFIED SNOMED Code(s): 82796067 Plan: Admitted to ICU Consults to surgery and critical care completed Continue current medication regimen. Nothing by mouth at this time Low intermittent suction to Dobbhoff tube Pain control with morphine and Dilaudid IV, and transdermal fentanyl Broad-spectrum antibiotics Zosyn 3.375 every 8 hours IV normal saline 130 mL, gentle rehydration Protonix for PPI coverage Zofran as needed for nausea Continue Norepinephrine for hypotension, titrate for map greater than 60 Currently patient is no bright measures with no mechanical life support or intubation. I still like to continue with medical therapy as well discomfort. Have had extensive conversation regarding patient's status and they're aware of the extremity prognosis of the patient. We have discussed comfort care and they are considering that at this time as patient is not a surgical candidate. We will continue to follow closely and reassess tomorrow. Time with Patient: Greater than 30
[2020-09-19] MEDS ORDERED: PIPERACILLIN-TAZOBACTAM 3.375 GM in SODIUM CHLORIDE 0.9% 100 ML IVPB SCH (12:00)
--- NOTE | 2020-09-19 12:42 | CONS ---
CONSULTATION DATE OF SERVICE: 09/19/2020 REASON FOR CONSULTATION: Esophageal cancer. CHIEF COMPLAINT: Abdominal pain. HISTORY OF PRESENT ILLNESS: Donte is a pleasant 64-year-old gentleman, well known to our service. He is under the care of Dr. Choi. He was recently diagnosed was adenocarcinoma of the distal esophagus when he presented with progressive dysphagia and weight loss. He was evaluated by Dr. Hickman. 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 Subsequently, he was evaluated at [facility] and the plan was to proceed was neoadjuvant chemoradiation therapy followed by surgery. He has been seen by Dr. Choi and Dr. Cannon, Radiation Oncology, and started his concurrent chemoradiation therapy, which he completed last week. Unfortunately, he came into the emergency department last week. Due to his difficulty with dysphagia, a Dobhoff tube was placed. Apparently over the last couple weeks has progressive abdominal pain and distention associated with nausea and vomiting and the pain became intractable and the patient became very weak. He came to the emergency department. He had a CT scan of the chest, which revealed diffuse interstitial areas and extensive portal venous air, felt to be related to gangrenous bowel and small pneumoperitoneum with significantly distended stomach. He ended up being admitted to the intensive care unit. He was seen by tax assessor, Dr. Petty, and he was seen also by Surgery. At this current point of time, he is doing poorly and he is on vasopressor and having significant abdominal pain and distention. Per my discussion with his , the patient has had ongoing diarrhea and he has lost over 20 pounds, but over the last couple days the abdominal pain has become significantly intractable and the patient became weaker and weaker. PAST MEDICAL HISTORY: In addition to what is stated above in the history of present illness, he has a history of hypertension, hypothyroidism. PAST SURGICAL HISTORY: He had adenoidectomy, tonsillectomy, colonoscopy, left knee replacement, back surgery, hernia surgery, ganglion cyst excision and wrist surgery. FAMILY HISTORY: For malignancy. His daughter had thyroid cancer and she had sarcoma. SOCIAL HISTORY: Used to be a smoker. He is . No alcohol abuse. He uses marijuana. HOME MEDICATION: Include aspirin, Carafate, lisinopril, Zofran, Suboxone sublingual, Synthroid. ALLERGIES: He is allergic to CODEINE and OXYCODONE. REVIEW OF SYSTEMS: As stated above in history of present illness. PHYSICAL EXAMINATION: He appears very weak, tired and semi lethargic. His vital signs are blood pressure 105/60, pulse is 91 on high-flow cannula, and respiration is 38. HEENT: Normocephalic, atraumatic. Oral mucosa are dry. NECK: Supple. Heart is tachy. Lungs are clear. Abdomen is distended with hypoactive bowel sounds. Extremities reveal trace edema. Lymphatics: No peripherally enlarged cervical or supraclavicular nodes. LABORATORY DATA: WBC of 6.5, hemoglobin 11.1, hematocrit is 33.6, platelets are 290. Sodium 140, potassium 4.1, chloride 110, CO2 is 14, BUN 58, creatinine 2.65, calcium is 10.7. AST, ALT, and alkaline phosphatase are within normal limits. The serum lactic acid was 7.2. IMPRESSION: 1. Esophageal carcinoma with diagnostic and therapeutic circumstances as stated above. 2. Abdominal distention and pain with nausea and vomiting consistent with possible gangrenous bowel and ileus. 3. Acute kidney injury secondary to dehydration and possible ongoing sepsis. RECOMMENDATION: 1. I had a long discussion with the patient's at bedside. Overall prognosis appears to be very poor. 2. At this time, a decision was made for no resuscitation. 3. The plan is for comfort measures only. Thank you very much. PEDRO / SARAH: [id number] /
--- NOTE | 2020-09-19 12:46 | P.GSCN ---
History of Present Illness Consult date: 09/19/20 Reason for Consult: Abdominal pain History of present illness: This is a 64-year-old male with history of esophageal cancer. Patient has devel oped severe acute abdominal pain. Patient returned in the interim found evidence of pneumatosis of the bowel. He has complaints of severe abdominal pain. Past Medical History Past Medical History: Cancer, Hyperlipidemia, Hypertension, Thyroid Disorder Additional Past Medical History / Comment(s): having difficulty swallowing,has narrowing of esophagus on swallow test completed 07-07-20,weight loss of 20 lbs over last 2 months, hx chronic back pain, hypothyroid, espohageal cancer History of Any Multi-Drug Resistant Organisms: None Reported Past Surgical History: Back Surgery, Hernia Repair, Joint Replacement, Tonsillectomy Additional Past Surgical History / Comment(s): R/L elbow sx,lt total knee Past Anesthesia/Blood Transfusion Reactions: No Reported Reaction Past Psychological History: No Psychological Hx Reported Smoking Status: Current every day smoker Past Alcohol Use History: None Reported Past Drug Use History: Marijuana - Past Family History Mother History Unknown: Yes Additional Family Medical History / Comment(s): unknown parents hx-pt adopted Daughter(s) Family Medical History: Cancer Medications and Allergies Home Medications Medication Instructions Recorded Confirmed Type Levothyroxine Sodium [Synthroid] 100 mcg PO DAILY 02/09/18 09/19/20 History Aspirin EC [Ecotrin Low Dose] 81 mg PO DAILY 09/19/20 09/19/20 History Buprenorphine HCl/Naloxone HCl 0.5 film SL BID PRN 09/19/20 09/19/20 History [Buprenorp-Nalox 4-1 mg Sl Film] Loratadine 10 mg PO DAILY 09/19/20 09/19/20 History Multivitamins with Iron, Ped 10 ml PO DAILY 09/19/20 09/19/20 History [Poly--Deb + Iron Drops (formulary)] Ondansetron Odt [Zofran Odt] 8 mg PO Q8HR PRN 09/19/20 09/19/20 History Polyethylene Glycol 3350 [Clearlax] 17 gm PO BID PRN 09/19/20 09/19/20 History clonazePAM [KlonoPIN] 0.5 mg PO Q8H PRN 09/19/20 09/19/20 History lisinopriL [Zestril] 10 mg PO DAILY 09/19/20 09/19/20 History Allergies Allergy/AdvReac Type Severity Reaction Status Date / Time codeine AdvReac Itching Verified 09/19/20 10:06 oxycodone [From OxyContin] AdvReac patient Verified 09/19/20 10:06 does not want Surgical - Exam Vital Signs Temp Pulse Resp BP Pulse Ox 97.5 F L 105 H 22 129/110 93 L 09/19/20 04:11 09/19/20 04:11 09/19/20 04:11 09/19/20 04:11 09/19/20 04:11 - General chronically ill - Eyes PERRL - ENT normal pinna - Neck no masses - Respiratory normal expansion - Cardiovascular Rhythm: regular - Abdomen Severe tenderness throughout Abdomen: distended Results - Labs 09/19/20 04:35 09/19/20 04:35 Abnormal Lab Results - Last 24 Hours (Table) 09/19/20 09/19/20 09/19/20 Range/Units 04:35 04:35 04:35 RBC 3.39 L (4.30-5.90) m/uL Hgb 11.1 L (13.0-17.5) gm/dL Hct 33.6 L (39.0-53.0) % RDW 18.7 H (11.5-15.5) % Lymphocytes # (Manual) 0.13 L (1.0-4.8) k/uL Metamyelocytes # (Man) 0.07 H (0) k/uL Nucleated RBCs 2 H (0-0) /100 WBC APTT 21.6 L (22.0-30.0) sec Chloride (98-107) mmol/L Carbon Dioxide (22-30) mmol/L BUN (9-20) mg/dL Creatinine (0.66-1.25) mg/dL Glucose (74-99) mg/dL POC Glucose (mg/dL) (75-99) mg/dL Plasma Lactic Acid Jared (0.7-2.0) mmol/L Calcium (8.4-10.2) mg/dL Total Protein (6.3-8.2) g/dL Albumin (3.5-5.0) g/dL Lipase (23-300) U/L Urine Protein Trace H (Negative) Hyaline Casts 4 H (0-2) /lpf Urine Mucus Rare H (None) /hpf 09/19/20 09/19/20 09/19/20 Range/Units 04:35 04:35 08:30 RBC (4.30-5.90) m/uL Hgb (13.0-17.5) gm/dL Hct (39.0-53.0) % RDW (11.5-15.5) % Lymphocytes # (Manual) (1.0-4.8) k/uL Metamyelocytes # (Man) (0) k/uL Nucleated RBCs (0-0) /100 WBC APTT (22.0-30.0) sec Chloride 110 H (98-107) mmol/L Carbon Dioxide 14 L (22-30) mmol/L BUN 58 H (9-20) mg/dL Creatinine 2.68 H (0.66-1.25) mg/dL Glucose 135 H (74-99) mg/dL POC Glucose (mg/dL) (75-99) mg/dL Plasma Lactic Acid Jared 7.2 H* 4.2 H* (0.7-2.0) mmol/L Calcium 10.7 H (8.4-10.2) mg/dL Total Protein 6.0 L (6.3-8.2) g/dL Albumin 3.0 L (3.5-5.0) g/dL Lipase 15 L (23-300) U/L Urine Protein (Negative) Hyaline Casts (0-2) /lpf Urine Mucus (None) /hpf 09/19/20 09/19/20 Range/Units 09:08 11:39 RBC (4.30-5.90) m/uL Hgb (13.0-17.5) gm/dL Hct (39.0-53.0) % RDW (11.5-15.5) % Lymphocytes # (Manual) (1.0-4.8) k/uL Metamyelocytes # (Man) (0) k/uL Nucleated RBCs (0-0) /100 WBC APTT (22.0-30.0) sec Chloride (98-107) mmol/L Carbon Dioxide (22-30) mmol/L BUN (9-20) mg/dL Creatinine (0.66-1.25) mg/dL Glucose (74-99) mg/dL POC Glucose (mg/dL) 127 H (75-99) mg/dL Plasma Lactic Acid Jared 9.1 H* (0.7-2.0) mmol/L Calcium (8.4-10.2) mg/dL Total Protein (6.3-8.2) g/dL Albumin (3.5-5.0) g/dL Lipase (23-300) U/L Urine Protein (Negative) Hyaline Casts (0-2) /lpf Urine Mucus (None) /hpf Diabetes panel 09/19/20 Range/Units 04:35 Sodium 140 (137-145) mmol/L Potassium 4.1 (3.5-5.1) mmol/L Chloride 110 H (98-107) mmol/L Carbon Dioxide 14 L (22-30) mmol/L BUN 58 H (9-20) mg/dL Creatinine 2.68 H (0.66-1.25) mg/dL Glucose 135 H (74-99) mg/dL Calcium 10.7 H (8.4-10.2) mg/dL AST 29 (17-59) U/L ALT 26 (4-49) U/L Alkaline Phosphatase 79 (38-126) U/L Total Protein 6.0 L (6.3-8.2) g/dL Albumin 3.0 L (3.5-5.0) g/dL Calcium panel 09/19/20 Range/Units 04:35 Calcium 10.7 H (8.4-10.2) mg/dL Albumin 3.0 L (3.5-5.0) g/dL Pituitary panel 09/19/20 Range/Units 04:35 Sodium 140 (137-145) mmol/L Potassium 4.1 (3.5-5.1) mmol/L Chloride 110 H (98-107) mmol/L Carbon Dioxide 14 L (22-30) mmol/L BUN 58 H (9-20) mg/dL Creatinine 2.68 H (0.66-1.25) mg/dL Glucose 135 H (74-99) mg/dL Calcium 10.7 H (8.4-10.2) mg/dL Adrenal panel 09/19/20 Range/Units 04:35 Sodium 140 (137-145) mmol/L Potassium 4.1 (3.5-5.1) mmol/L Chloride 110 H (98-107) mmol/L Carbon Dioxide 14 L (22-30) mmol/L BUN 58 H (9-20) mg/dL Creatinine 2.68 H (0.66-1.25) mg/dL Glucose 135 H (74-99) mg/dL Calcium 10.7 H (8.4-10.2) mg/dL Total Bilirubin 0.5 (0.2-1.3) mg/dL AST 29 (17-59) U/L ALT 26 (4-49) U/L Alkaline Phosphatase 79 (38-126) U/L Total Protein 6.0 L (6.3-8.2) g/dL Albumin 3.0 L (3.5-5.0) g/dL - Imaging CT scan - abdomen: report reviewed (Extensive portal venous air which could be related to gain spell. There is diffuse intestinal ileus small amount of pneumoperitoneum) Assessment and Plan Assessment: 64-year-old male with pneumatosis intestinalis. Patient most likely has ischemic/gangrenous bowel. I DISCUSSED with the patient and his . He does not wish to have surgery. Patient and are agreeable for comfort care measures.
[2020-09-19] MEDS ORDERED: MORPHINE SULFATE 2 MG/ML SYRINGE IV PRN (12:55)
[2020-09-19] MEDS ORDERED: LORazepam 2 MG/ML INJ IV PRN (12:55)
[2020-09-19 13:13] VITALS: TEMP 96.8
[2020-09-19 13:17] VITALS: BP 72/56; PULSE 88; RESP 31
[2020-09-19] MEDS ORDERED: MORPHINE SULFATE (100 MG/2 ML) 100 MG in SODIUM CHLORIDE 0.9% 100 ML IV SCH (13:30)
[2020-09-19] MEDS ORDERED: metroNIDAZOLE-NS PMX 500 MG in SALINE 1 100ML.BAG IVPB SCH (16:00)
--- NOTE | 2020-10-08 15:04 | CDI ---
Documentation Clarification Form Mortality Review Date: 10/08/2020 02:48:06 PM From: Sonja Reyna RN, CCDS Admit Date: 09/19/2020 07:10:00 AM Patient Name: Donte Zhang Visit Number: [id number] Discharge Date: 09/19/2020 04:19:00 PM ATTENTION: The Clinical Documentation Specialists (CDI) and [facility] Coding Staff appreciate your assistance in clarifying documentation. Please respond to the clarification below the line at the bottom and electronically sign. The CDI & [facility] Coding staff will review the response and follow-up if needed. Please note: Queries are made part of the Legal Health Record. If you have any questions, please contact the author of this message via ITS. Dr. Mario Carrion Your patient has documentation of Respiratory distress, labored breathing with accessory muscle use and increasing O2 needs through stay. Based on this information and the findings below, is there an additional diagnosis that is clinically appropriate for this patient? History/Risk Factors: Esophageal Cancer, Dysphagia with Dobhoff tube in place, hypothyroid, Sepsis with Septic Shock, Gangrenous Bowel Tobacco use: Current every day smoker Clinical Indicators: 09/19 ED Note: "Respiratory exam: Present: respiratory distress (Mild tachypnea), rhonchi." Vital signs: 09/19 410 Admission: temp 97.5, HR 105, RR 22, B/P 129/110, Spo2 93% RA 09/19 0737 O2 increased to 5L Spo2 91% RR 22, 09/19 1100 RR 36, Spo2 87% on 9L high flow 09/19 H&P Lung/Breathing assessment: "LUNGS: Tachypnea, scattered rhonchi bilaterally." Lactic Acid: 7.2/4.2/9.1 Treatment: Breathing TX: None Ordered Continuous Pulse ox per ICU Protocol O2: Increased from room air to 2L NC, to 5L NC, to 9L High Flow Is there an additional diagnosis that is clinically appropriate for this patient? [ ] Acute Hypoxic Respiratory Failure (pO2 <60 mm Hg or SpO2 <91% on room air) [ ] Acute Hypercapnic Respiratory Failure (pCO2 >50 and pH <7.35) [ ] Other Diagnosis, please specify [ ] Unable to determine (Template Last Revised: May 2020) ___Esophageal cancer, sepsis secondary to pneumonia, hypercapnic respiratory failure MTDD
--- NOTE | 2020-10-15 12:17 | P.PN ---
Progress Note - Text Progress Note Date: 10/15/20 Add to assessment: Acute hypoxic respiratory failure. The impression and plan of care has been dictated as directed. : I performed a history and examination of this patient, discussed the same with the dictator. I agree with the dictator's note ,documented as a scribe. Any additional findings or plans will be noted.
--- NOTE | 2020-10-22 16:18 | P.DS ---
Providers Date of admission: 09/19/20 07:10 Expected date of discharge: 09/19/20 Attending physician: Mario Carrion Consults: 09/19/20 07:10 Consult Physician Stat Consulting Provider: Wayne Petty Consult Reason/Comments: abdominal pain. hypotension. sepsis Do you want consulting provider notified?: Already Contacted Consult Physician Urgent Consulting Provider: Drew Bagley Consult Reason/Comments: Abdominal pain. Sepsis. Pneumoperitoneum Do you want consulting provider notified?: Already Contacted Primary care physician: Mario Carrion - Discharge Diagnosis(es) (1) Esophageal cancer Status: Acute (2) Intra-abdominal free air of unknown etiology Status: Acute (3) Lactic acidosis Status: Acute (4) Acute renal failure Status: Acute (5) Septic shock Status: Acute (6) Hypotension Status: Acute (7) Difficulty swallowing Status: Acute (8) Nasogastric tube present Status: Acute (9) Dyspnea Status: Acute (10) History of depression Status: Acute (11) History of anxiety Status: Acute (12) Hypothyroidism Status: Acute (13) Former smoker Status: Acute (14) Abdominal pain Status: Acute (15) Nausea & vomiting Status: Acute Hospital Course: Patient presented to the emergency room with worsening abdominal pain, abdominal distention, and altered mental status. patient was recently diagnosed with esophageal cancer with complete occlusion of esophagus at approximately the 34 cm osei from incisors. Dobbhoff tube was in place for nutrition and oral medications. Patient was admitted to the ICU. Consult was made to general surgery for pneumoperitoneum and the dermatology technician for ICU care. after speaking with patient's and discussing prognosis this patient is not a surgical candidate this time he was maintained a DNR. Comfort care was being initiated and patient passed proximally 1430 Assessment: esophageal cancer Gangrenous bowel Pneumoperitoneum Lactic acidosis Acute on chronic kidney injury Abdominal pain Mental status changes Nasogastric tube dyspnea Nausea vomiting Pertinent Studies: CT of abdomen impression extensive portal venous air that could relate to gangrenous bowel. There is diffuse interstitial ileus. Small pneumoperitoneum. These are new findings compared to previous CT of the abdomen Patient Condition at Discharge: Critical Plan - Discharge Summary New Discharge Prescriptions: No Action Levothyroxine Sodium [Synthroid] 100 mcg PO DAILY Loratadine 10 mg PO DAILY lisinopriL [Zestril] 10 mg PO DAILY Polyethylene Glycol 3350 [Clearlax] 17 gm PO BID PRN PRN Reason: Constipation Aspirin EC [Ecotrin Low Dose] 81 mg PO DAILY Multivitamins with Iron, Ped [Poly--Deb + Iron Drops (formulary)] 10 ml PO DAILY clonazePAM [KlonoPIN] 0.5 mg PO Q8H PRN PRN Reason: Anxiety Ondansetron Odt [Zofran Odt] 8 mg PO Q8HR PRN PRN Reason: Nausea Buprenorphine HCl/Naloxone HCl [Buprenorp-Nalox 4-1 mg Sl Film] 0.5 film SL BID PRN PRN Reason: Pain Discharge Medication List Levothyroxine Sodium [Synthroid] 100 mcg PO DAILY 02/09/18 [History] Aspirin EC [Ecotrin Low Dose] 81 mg PO DAILY 09/19/20 [History] Buprenorphine HCl/Naloxone HCl [Buprenorp-Nalox 4-1 mg Sl Film] 0.5 film SL BID PRN 09/19/20 [History] Loratadine 10 mg PO DAILY 09/19/20 [History] Multivitamins with Iron, Ped [Poly--Deb + Iron Drops (formulary)] 10 ml PO DAILY 09/19/20 [History] Ondansetron Odt [Zofran Odt] 8 mg PO Q8HR PRN 09/19/20 [History] Polyethylene Glycol 3350 [Clearlax] 17 gm PO BID PRN 09/19/20 [History] clonazePAM [KlonoPIN] 0.5 mg PO Q8H PRN 09/19/20 [History] lisinopriL [Zestril] 10 mg PO DAILY 09/19/20 [History] Follow up Appointment(s)/Referral(s): Mario Carrion Jr, DO [Primary Care Provider] - 1-2 days Discharge Disposition: Plan of Treatment: comfort care orders were initiated approximately 12:15 and patient approximately 1430 - Preliminary Cause of Preliminary Cause of : septic shock from gangrenous bowel, pneumoperitoneum
== END 2020-09-19 16:19 | disposition expired | DRG 871 ==
LOC: EC 04:05 → 2SICU 07:10
PROVIDERS: ADMIT Family Medicine; ATTEND Family Medicine
PROC: 3E033XZ Introduction of Vasopressor into Peripheral Vein, Percutaneous Approach (ICD-10-PCS; principal; 2020-09-19)
PROC: 06HM33Z Insertion of Infusion Device into Right Femoral Vein, Percutaneous Approach (ICD-10-PCS; 2020-09-19)
DX: A41.9 Sepsis, unspecified organism (principal); R65.21 Severe sepsis with septic shock; K55.069 Acute infarction of intestine, part and extent unspecified; J96.01 Acute respiratory failure with hypoxia; N17.9 Acute kidney failure, unspecified; C15.5 Malignant neoplasm of lower third of esophagus; K56.7 Ileus, unspecified; E87.2 Acidosis; K63.89 Other specified diseases of intestine; E78.5 Hyperlipidemia, unspecified; I10 Essential (primary) hypertension; E03.9 Hypothyroidism, unspecified; R13.10 Dysphagia, unspecified; E86.0 Dehydration; K31.84 Gastroparesis; G89.29 Other chronic pain; M54.9 Dorsalgia, unspecified; Z66 Do not resuscitate; Z96.652 Presence of left artificial knee joint; F32.9 Major depressive disorder, single episode, unspecified; F41.9 Anxiety disorder, unspecified; Z51.5 Encounter for palliative care; Z79.82 Long term (current) use of aspirin; Z79.890 Hormone replacement therapy; Z79.899 Other long term (current) drug therapy; Z88.5 Allergy status to narcotic agent; Z80.9 Family history of malignant neoplasm, unspecified; Z92.3 Personal history of irradiation; Z92.21 Personal history of antineoplastic chemotherapy; Z87.891 Personal history of nicotine dependence
CPT/HCPCS: 36415; 36556; 74176; 80053; 81001; 82150; 83605; 83690; 84484; 85025; 85610; 85730; 87040; 93005; 96361; 96365; 96366; 96368; 96372; 96375; 99285